=== PATIENT | female | born 1940 | race Caucasian/White ===

== ENCOUNTER 2019-05-12 21:43 | Inpatient (IN) ==
[2019-05-12] MEDS ORDERED: MORPHINE IV ONE (22:27)
--- NOTE | 2019-05-13 00:10 | PROVIDER DOCUMENTATION ---
This chart was entered by Alma Raymundo Scribe, acting as scribe for Teo Braxton MD. HPI-Musculoskeletal Pain/Inj - GENERAL Chief Complaint: Hip Injury Stated Complaint: fall Time Seen by Provider: 05/12/19 22:00 Source: patient - HX OF PRESENT ILLNESS-MUSKULOSKELTAL Nature of Presenting Problem: PT IS A 78 YR OLD FEMALE PRESENTING VIA EMS WITH COMPLAINT OF LEFT HIP PAIN POST FALL, PT REPORTS SHE WAS WORKING ON HER BEDROOM CURTAINS WHEN SHE LOST HER BALANCE AND FELL BACKWARDS ONTO HER BUTTOCKS, PT REPORTS LEFT HIP PAIN WITH WEIGHT BEARING/AMBULATION, NO OTHER COMPLAINTS. Quality of Pain: reports: aching Severity in ED: moderate Onset/Duration: this evening Timing: still present Modifying Factors: improves with: movement (WORSENS PAIN), other (WEIGHT BEARING WORSENS PAIN) Any recent injury?: Yes Locality of Occurance: Home Similar Symptoms Previously?: No Recently seen or treated by another doctor?: No - HIP/PELVIS PAIN/INJURY Hip Pain Location: reports: hip (L) Pain Radiation: reports: no radiation Context / Method of Injury: reports: fall Associated Symptoms: denies: loss of bladder control, loss of bowel control, lower back pain, numbness in legs/feet, tingling in legs/feet, weakness in legs/feet - LOWER EXTREMITY PAIN/INJURY Lower Extremities Pain: hip: left Associated Symptoms: reports: denies symptoms Review of Systems - Adult - REVIEW OF SYSTEMS - ADULT Constitutional: reports: no symptoms reported Eyes: reports: no symptoms reported Ears, Nose, Mouth & Throat: reports: no symptoms reported Cardiovascular: denies: chest pain, palpitations, syncope Respiratory: denies: pleurisy, shortness of breath Gastrointestinal: denies: abdominal pain, nausea, vomiting Genitourinary: reports: no symptoms reported Musculoskeletal: reports: joint pain (LEFT HIP). denies: back pain Integumentary: reports: no symptoms reported Neurological: denies: dizziness/vertigo, headache/migraines, syncope Psychiatric: reports: no symptoms reported Endocrine: reports: no symptoms reported Hematologic/Lymphatic: reports: no symptoms reported Allergic/Immunologic: reports: no symptoms reported All Other Systems: Reviewed and Negative Past History - Adult - PAST MEDICAL HISTORY-ADULT Review of Records: reports: Old Records Reviewed, Nursing Assessment Review, Medications Reviewed, Social history reviewed & non-contributory. Major Childhood Illnesses: reports: denies history Cardiovascular: reports: HTN Respiratory: reports: denies history Gastrointestinal: reports: denies history Obstetrical/Gynecological: reports: denies history Genitourinary: reports: denies history Musculoskeletal: reports: denies history Neurological: reports: dementia Psychiatric: reports: denies history Endocrine/Immune: reports: denies history Other Conditions: reports: denies history - PRIOR SURGERIES/PROCEDURES Surgical/Procedure History: reports: reviewed, not pertinent - IMMUNIZATION STATUS Childhood Immunizations: See Nurse Assessment Flu Vaccine: See Nurse Assessment - FAMILY HISTORY Family History: reviewed, not pertinent - SOCIAL HISTORY Smoking: quit greater than 1 year Provider spent 3-5 mins advising pt. on dangers of tobacco.: Discussed manners to quit use, and f/u contacts for add'l counseling. Living Situation: family Physical Exam-Injury Related - Physical Exam-Injury Related Initial Vital Signs Reviewed: Yes General Appearance: appears well, alert, no apparent distress Immobilization?: negative: backboard, C-collar Eyes: PERRL/EOMI Head, Ears, Nose, Mouth & Throat: normocephalic/atraumatic, moist mucous membranes, normal ENT inspection Neck: non-tender, full range of motion, supple, normal inspection Respiratory: chest non-tender, lungs clear, normal breath sounds Cardiovascular: normal peripheral pulses, regular rate, rhythm, no edema Chest/Breast: deferred Abdominal Exam: normal bowel sounds, non tender, soft Lymphatic: no adenopathy Back Exam: normal inspection, no CVA tenderness, no vertebral tenderness Extremity: tenderness (LEFT HIP), other (SHORTENING OF LEFT LEG). negative: deformity Integumentary: normal color, warm/dry Neurologic: grossly normal Psych/Mental Status: normal mood/affect - Glascow Coma Score Best Eye Response (Ridge): (4) open spontaneously Best Verbal Response (Sandwich): (5) oriented Best Motor Response (Sandwich): (6) obeys commands Ridge Total: 15 Progress - PLAN OF CARE/RESULTS Progress/Plan/Lab Results: Vital Signs - 8 hr 05/12/19 21:58 Pulse Rate 97 H Respiratory Rate 20 Blood Pressure 182/70 O2 Sat by Pulse Oximetry 88 L Orders Category Date Time Status CHEST-1 VIEW [RAD] Stat Exams 05/12/19 22:56 Taken XRAY PELVIS W/HIP 2-3VW LT [RAD] Stat Exams 05/12/19 22:27 Taken Morphine Med 05/12/19 22:27 Discontinued 4 mg IV NOW ONE Departure - Departure Date of Disposition Decision: 05/13/19 Time of Disposition Decision: 00:09 DIAGNOSIS: Closed left hip fracture Qualifiers: Encounter type: initial encounter Qualified Code(s): S72.002A - Fracture of unspecified part of neck of left femur, initial encounter for closed fracture Disposition: ADMITTED INPATIENT Certified Medical Emergency: Emergent Condition: Stable - Critical Care Note This patient required my direct & personal management of CC.: No Attestation - Physician/ CRISTO Attestation Patient care was provided by Advanced Practice Provider:: No The physician spent face to face time with patient:: Yes Advanced Practice Provider documentation review:: Supervising physician onsite and consulted in the evaluation and care of this patient. The physician did have a face to face encounter with the patient. This chart was documented by the indicated scribe, (Alma Raymundo, Oscar) and accurately reflects the services I performed and decisions made by me, Teo Braxton MD, as attested by the provider's signature.
[2019-05-13] MEDS ORDERED: MORPHINE IV PRN ×2 (00:54→15:16)
[2019-05-13] MEDS ORDERED: D5 1/2 NS 1,000 ML IV ONE (00:55)
[2019-05-13] MEDS ORDERED: SINEQUAN PO PRN (00:56)
[2019-05-13] MEDS ORDERED: TYLENOL PO PRN (01:00)
[2019-05-13] MEDS ORDERED: ATIVAN IV ONE (01:02)
[2019-05-13 01:33] LABS: BASO# 0.02 X1000 (0.0-0.2); BASO% 0.2 % (0.0-0.8); EOS# 0.06 X1000 (0.0-0.7); EOS% 0.6 % (0.0-10.0); HEMATOCRIT 35.9 % (37.0-47.0); HEMOGLOBIN 11.6 g/dL (12.0-16.0); LYMPH# 1.26 X1000 (1.2-3.4); LYMPH% 12.5 % (20.5-51.1); MCH 30.4 PG (27-31); MCHC 32.3 g/dL (33-37); MONO# 0.91 X1000 (0.11-0.59); MPV 9.3 FL (7.4-10.4); NEUT# 7.81 X1000 (1.4-6.5); NEUT% 77.7 % (42.2-75.2); PLT 209 X1000 (130-400); RBC 3.82 XMIL (4.2-5.4); WBC 10.06 X1000 (4.8-10.8)
[2019-05-13 01:36] LABS: INR 1.08; PROTIME 14.1 Seconds (11.0-16.0)
[2019-05-13 01:37] LABS: PTT 31.5 Seconds (22.3-41.8)
[2019-05-13] MEDS ORDERED: ROBAXIN PO PRN (01:43)
[2019-05-13 01:52] LABS: CALCIUM 8.8 mg/dL (8.8-10.2); CREATININE 0.9 mg/dL (0.5-0.9); POTASSIUM 4.3 mmol/L (3.5-5.1)
[2019-05-13 04:23] LABS: URINE SOURCE CATH
[2019-05-13 04:27] LABS: BILIRUBIN URINE NEGATIVE (NEGATIVE); BLOOD URINE MODERATE (NEGATIVE); COLOR YELLOW; GLUCOSE URINE NEGATIVE (NEGATIVE); KETONE URINE NEGATIVE (NEGATIVE); LEUKOCYTES URINE NEGATIVE (NEGATIVE); NITRITE URINE NEGATIVE (NEGATIVE); PH URINE 5.5; PROTEIN URINE 30 mg/dL (NEGATIVE); SP GRAVITY URINE 1.021; TURBIDITY URINE CLEAR (CLEAR); UR EPITHELIAL CELLS <10 /HPF (<10); URINE BACTERIA NEGATIVE /HPF; URINE RBC TNTC /HPF (<10); URINE WBC <10 /HPF (<10); UROBILINOGEN URINE NORMAL (NORMAL)
[2019-05-13 06:23] LABS: BASO# 0.04 X1000 (0.0-0.2); BASO% 0.5 % (0.0-0.8); EOS# 0.16 X1000 (0.0-0.7); EOS% 1.9 % (0.0-10.0); HEMATOCRIT 35.8 % (37.0-47.0); HEMOGLOBIN 11.4 g/dL (12.0-16.0); LYMPH% 9.6 % (20.5-51.1); MCH 30.5 PG (27-31); MCHC 31.8 g/dL (33-37); MCV 95.7 FL (81-99); MONO# 0.77 X1000 (0.11-0.59); MONO% 9.2 % (1.7-9.3); MPV 9.3 FL (7.4-10.4); NEUT% 78.8 % (42.2-75.2); PLT 205 X1000 (130-400); RBC 3.74 XMIL (4.2-5.4); RDW 14.1 % (11.5-14.5); WBC 8.37 X1000 (4.8-10.8)
[2019-05-13 06:44] LABS: CALCIUM 8.4 mg/dL (8.8-10.2); CREATININE 0.9 mg/dL (0.5-0.9); POTASSIUM 4.4 mmol/L (3.5-5.1)
--- NOTE | 2019-05-13 07:16 | HISTORY AND PHYSICAL ---
CHIEF COMPLAINT: Left hip pain. HISTORY OF PRESENT ILLNESS: This is a 78-year-old female with a past medical history of anxiety, depression, insomnia and possible dementia who presented to the emergency department with a chief complaint of left hip pain, as per the patient she was working on her bedroom and she lost her balance, she fell backward and hit her buttocks, after that she started having left hip pain, but she was able to ambulate, she did not hit her head or neck, she did not lose consciousness, no dizziness, no chest pain, no palpitations, no nausea, no vomiting, no diarrhea, no constipation, no urinary symptoms, no cough. At the emergency department, she was found to have a left hip fracture. They contacted Orthopedic Surgery, Dr. Guzman, she will be admitted, she will be placed NPO. Probably she will go for surgery tomorrow or the day after tomorrow, I had a large conversation with the daughter, which is the power of [place] attorney, and she stated that also the patient has been drinking every day, apparently she drinks Lambrusco, she believes 2 to 3 coffee cups of this drink, I will put her on banana bag, I will put her on Ativan as needed if she has some withdrawal symptoms, and I will continue with her home medications as well. She will be admitted to the medical/surgical floor and hopefully she will be getting surgery in the near future. REVIEW OF SYSTEMS: All the 14 points of review of systems were reviewed. All of them negative, except as per HPI. PAST MEDICAL HISTORY: Anxiety, depression, insomnia, and possible dementia. She has a medical history of deep venous thrombosis at the level of the lower extremity, she took Xarelto for a few months and has been already stopped by her primary care doctor. 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 FAMILY HISTORY: Noncontributory. SOCIAL HISTORY: Apparently she drinks every day, apparently for the past 2 years, she drinks Lambrusco and the daughter believes that she drinks at least 2 to 3 coffee cups of Lambrusco on a daily basis. Smoking history, he used to smoke 1 pack a day for 40 years, she stopped smoking 15 years ago, no drugs. HOME MEDICATIONS: Doxepin 10 mg p.o. as needed to sleep. Citalopram 20 mg p.o. daily. Buspirone 10 mg p.o. t.i.d. Methocarbamol/Robaxin 1 tablet p.o. t.i.d. as needed. PHYSICAL EXAMINATION: VITAL SIGNS: Pulse 97, respiratory rate 20, blood pressure 182/70, oxygen saturation on the monitor 93 on room air. HEENT: Head normocephalic. No trauma. PERRLA. NECK: Supple no JVD. No masses. Central trachea. CHEST: Clear to auscultation. No wheezing. No rales. ABDOMEN: Soft, nontender, nondistended. No hepatosplenomegaly. EXTREMITIES: Left hip pain, her left lower extremity is shorter compared with the right lower extremity. It is a slightly rotated externally, pain to palpation and mobilization at the level of the hip. NEUROLOGICAL EXAMINATION: The patient is alert. She is oriented x3. She is following commands, but she seems to be a little bit confused on and off. LABORATORY: Pending lab work at this moment. ASSESSMENT AND PLAN: 1. Left hip fracture, this patient will be admitted to the medical floor. Orthopedic Surgery has been already consulted and already notified by the ER doctor, she will be placed n.p.o. We will monitor this patient closely. We will continue with pain medication. 2. Anxiety. Continue home medications. 3. Deep vein thrombosis prophylaxis with sequential compression devices for possible surgical intervention in the near future. 4. Depression. Continue with the same management. 5. Possible dementia. Aware. 6. History of deep venous thrombosis, she already completed treatment with Xarelto, which has been stopped already by her primary care doctor. 7. Insomnia. Continue with p.r.n. medication. 8. Likely alcohol abuse. I will put this patient on a banana bag and also p.r.n. medications, Ativan, for withdrawal symptoms or agitation. 9. History of tobacco abuse, she already stopped smoking 15 years ago. 10. I had a conversation at the bedside with her daughter, which is the power of united states attorney, we discussed about her resuscitation status and this patient is full code. 11. Further recommendations pending hospital course. cc: MD JORDEN Sewell
--- NOTE | 2019-05-13 07:18 | Diag Imaging Result Doc PS360 ---
EXAM: XRAY PELVIS W/HIP 2-3VW LT INDICATION: fall, injury TECHNIQUE: 3 views COMPARISON: None. FINDINGS: There is an intratrochanteric fracture of the left hip with very little displacement. No other discrete fracture or dislocation is identified. Surrounding soft tissues are unremarkable. IMPRESSION: Intertrochanteric left hip fracture. Electronically signed by Vasile Sellers 05/13/2019 7:16 AM
--- NOTE | 2019-05-13 07:32 | Diag Imaging Result Doc PS360 ---
EXAM: CHEST-1 VIEW 05/12/2019 HISTORY: fall TECHNIQUE: PA chest COMMENT: There is apparent pleural and parenchymal fibrosis in both apices. There has been kyphoplasty at T12 and L2. The vertebral bodies of T8 and T9 appear to be partially compressed. This was also apparently present at the time of the MRI of the thoracic spine dated 02/21/2019. The heart size and primary vascularity are within normal limits. There are granulomatous calcifications in the left hilum. No previous studies are available for comparison. IMPRESSION: Osteoporosis. Multiple old vertebral compression fractures. Granulomatous changes. No definite evidence of acute pulmonary disease. Electronically signed by Isaiah Maddox 05/13/2019 7:29 AM
[2019-05-13] MEDS ORDERED: M.V.I.-12 10 ML, FOLIC ACID 1 MG, MAGNESIUM SULFATE 1 GM, THIAMINE 100 MG in NS 1,000 ML IV SCH (09:00)
[2019-05-13] MEDS ORDERED: DIPRIVAN 1% ONE (11:15)
[2019-05-13] MEDS ORDERED: XYLOCAINE-MPF 2% ONE (11:15)
[2019-05-13] MEDS ORDERED: ROBINUL ONE (11:15)
--- NOTE | 2019-05-13 11:51 | ORTHOPAEDICS CONSULTATION ---
DATE: 05/13/2019 CHIEF COMPLAINT: Left hip pain. HISTORY OF PRESENT ILLNESS: This is a 78-year-old female with a past medical history of depression and possible dementia with insomnia, who came to the emergency department for a recent fall. She reports that she could not ambulate, and she had some severe left hip pain at that time. She denies LOC. Orthopedics was consulted to come see the patient. An x-ray was performed in the emergency department and showed left intertrochanteric hip fracture. REVIEW OF SYSTEMS: A 12-point review of systems was performed. Pertinent positives listed in the HPI. PAST MEDICAL HISTORY: Includes depression, insomnia, and possible dementia. PAST SURGICAL HISTORY: Includes kyphoplasty in 03/2019, and inner ear surgery. FAMILY HISTORY: Noncontributory. SOCIAL HISTORY: The patient reports that she used to smoke daily, but has not smoked in over 15 years. She denies drug or alcohol use. HOME MEDICATIONS: Doxepin 10 mg p.o. at bedtime, citalopram 20 mg daily, and buspirone 10 mg t.i.d. PHYSICAL EXAMINATION: Vital Signs: Temperature 98.5 degrees, pulse rate 95, respiratory rate 20, blood pressure 164/65, oxygen saturation 98% on room air. HEENT: Head is atraumatic, normocephalic. Neck: Supple. Chest: There is equal chest expansion, rise and fall. Abdomen: Soft, nontender. Extremities: The left lower extremity is shortened and externally rotated. There is tenderness along the lateral left hip. There is good sensation. There are good pedal pulses. LABORATORY DATA: White blood cells 8.37, hemoglobin 11.4, hematocrit 35.8, platelets 205,000. INR 1.08. Sodium 137, potassium 4.4, chloride 104, BUN 16, creatinine 0.9, glucose 113. Urine shows moderate blood. ASSESSMENT: Left intertrochanteric hip fracture. PLAN: Will plan to place a trochanteric fixation nail today in the operating room with Dr. Parker. The patient has been n.p.o., and she agrees to this plan. All the risks of surgery were went over with the patient and family at bedside. They agree to these risks, including . Will see her in the operating room today. Dictated by BRUNO Pena for Pola Guzman MD cc: BRUNO Pena MD
[2019-05-13] MEDS ORDERED: KEFZOL 1 GM/D5W 1 GM/50 ML IVPB ONE (12:54)
[2019-05-13] MEDS ORDERED: VERSED ONE (12:57)
[2019-05-13] MEDS ORDERED: TORADOL ONE (13:38)
[2019-05-13] MEDS ORDERED: DECADRON ONE (13:38)
[2019-05-13] MEDS ORDERED: OFIRMEV 1000 MG/ISOTONIC SOLN 1,000 MG/100 ML BOTTLE ONE (13:38)
--- NOTE | 2019-05-13 14:02 | ORTHOPAEDICS CONSULTATION ---
DATE: 05/13/2019 REASON FOR CONSULTATION: Left hip pain after a fall. FAMILY PHYSICIAN: Guru Evans MD. HISTORY OF PRESENT ILLNESS: Ms. Moore is a 78-year-old female with a past medical history of anxiety, depression, insomnia, possible dementia, who presented to the [facility] Emergency Department after a fall. She states she is really unsure what happened. She does recall a fall yesterday. After that, she was unable to ambulate. She denies loss of consciousness or hitting the head or any other extremity. Once in the emergency department, x- rays showed a left hip fracture. Dr. Guzman was consulted for management of the left hip. Apparently the daughter was in the ER with the patient. The daughter does believe that she drinks Lambrusco daily. There are some concerns for withdrawal as we are not sure how much she drinks daily. She does live at home alone. The Hospitalist is following that. REVIEW OF SYSTEMS: A 10-point review of systems was completed and negative except what was mentioned above in the HPI. ALLERGIES: No known drug allergies. PAST MEDICAL HISTORY: 1. Anxiety. 2. Depression. She recently lost her . 3. Insomnia. 4. Possible dementia. 5. DVT left lower extremity. PAST SURGICAL HISTORY: Kyphoplasty. FAMILY HISTORY: Noncontributory. SOCIAL HISTORY: She does live at home alone. She is still very independent. She still drives. She has a son and a daughter that live close by. She did recently lose her . Apparently, she does drink daily and this has been going on for about 2 years. She denies tobacco or illicit drug use. HOME MEDICATIONS: 1. Doxepin 10 mg p.o. as needed sleep. 2. Wellbutrin 10 mg p.o. t.i.d. 3. Robaxin 1 p.o. t.i.d. as needed. PHYSICAL EXAMINATION: Vital signs: Temperature is 98.5, pulse 95, respirations 20, blood pressure 164/65. She is 98% on 2 L nasal cannula. General: This is a 78-year-old female in no acute distress. Neurological: She is alert and oriented but does have some trouble answering questions. HEENT: Head is atraumatic, normocephalic. Pupils are equal, round, and reactive to light. CV: Regular rate and rhythm. Pulmonary: Breathing is even and unlabored. Abdomen: Nondistended. Extremities: She does have the left foot kind of tucked under her. She is tender to palpation. She does complain of some left groin pain. She is able to dorsi flex and plantar flex the foot. There are no skin ulcerations or abrasions. She has good sensation to the lower extremity. IMAGING: A hip film showed a left intertrochanteric hip fracture. ASSESSMENT: Left intertrochanteric hip fracture. PLAN: Dr. Guzman has already been in to see the patient and has discussed the risks and benefits of nonoperative versus operative intervention. With operative treatment, we will get her back up much quicker and she will be full weightbearing. We will plan for a left trochanteric femoral nailing on Sunday or Sunday. This will likely be Sunday. It looks like she is medically cleared. Risks of the procedure were discussed. Risks include but are not limited to damage to nerves, arteries, and veins, malunion, nonunion, hardware-related issues, DVT, infection, and risk of general anesthesia. The patient understands and wishes to proceed. Again, it looks like we will probably set this up for Sunday. She will need to stay in a rehab. We will go ahead and plan on contacting [employer] to go ahead and get that setup. Dictated by BRUNO Jha for Pola Guzman MD cc: BRUNO Jha MD
[2019-05-13] MEDS ORDERED: OXY IR PO PRN (15:16)
[2019-05-13] MEDS ORDERED: ZOFRAN IV PRN (15:16)
--- NOTE | 2019-05-13 17:42 | OPERATIVE NOTE ---
PROCEDURE DATE : 05/13/2019 PREOPERATIVE DIAGNOSIS: Left intertrochanteric femur fracture. POSTOPERATIVE DIAGNOSIS: Left intertrochanteric femur fracture. PROCEDURE: Closed reduction and intramedullary nailing of left intertrochanteric femur fracture. SURGEON: Jacques Parker MD. CARPENTER ROUGH: BRUNO Pena, who was necessary to help with retraction as well as holding fracture reduction while implants were placed. ANESTHESIA: Spinal. COMPLICATIONS: None. SPECIMENS: None. BLOOD LOSS: 100 mL. IMPLANTS: Synthes TFN-A hip nail, size 11 mm x 380 mm, left, with a 95 mm helical blade and one distal interlocking screw. INDICATIONS FOR PROCEDURE: Ms. Moore is a 78-year-old lady who presented to [facility] after sustaining a same-level fall. The x-rays demonstrated an intertrochanteric femur fracture. Given her fracture pattern, she would benefit from closed reduction and intramedullary nailing. The risks and benefits of alternative therapies were discussed with the patient and her family, as well as regarding surgery. The risks of surgery include but are not limited to risks of bleeding, infection, damage to nerves and vessels around the area, continued pain following surgery, nonunion, malunion, and need for revision surgery. Also discussed the risks of anesthesia, including blood clot, stroke, or even . The patient understands these risks. All questions were answered, and informed consent was obtained. PROCEDURE IN DETAIL: Ms. Moore was identified by wrist band and greeted in the preoperative holding area on 05/13/2019. Her left lower extremity, which was the operative side, was then marked with indelible ink per the [facility] [id number] protocol. Following this, the patient was transferred back to the operating room for surgery. Spinal anesthetic was placed. She was then transferred in the supine position onto a Pearson table. All bony prominences were well padded. The legs were placed into the boot holders and placed in a scissored position. At this time, fluoroscopy was brought in, and a reduction maneuver was performed using traction on the bed. When we were satisfied with the reduction in both AP and lateral planes, the left lower extremity was then prepped and draped in routine sterile fashion. A formal time-out was performed, confirming correct patient, procedure, operative site, operative side, and administration foot preoperative antibiotics. Everyone in the room was in agreement. The patient received 2 grams of Ancef prior to incision. A 3 cm longitudinal incision was made just proximal to the tip of the greater trochanter using a 10 blade knife through the skin and subcutaneous tissue. At this time the guide pin for the nail was then placed on the tip of the greater trochanter. When we were satisfied with position in both AP and lateral planes, the guidewire was taken down to the level of the lesser trochanter. The flexible canal entry reamer was then used to enter the canal down to the level of the lesser trochanter. At this time a ball-tipped guidewire was then placed down distal to the knee. A measuring device was then used to measure the length of the nail, which was found to be 38 cm. We then began with sequential reaming, starting with a 10 m incutting reamer, followed by 11.5 mm and then 12.5 mm. At this time, an 11 mm x 380 mm left TFN-A nail was opened and assembled on the back table. The nail was then mounted into position in routine fashion. Reduction was maintained during this process. We then made a second more distal longitudinal incision for placement of our helical blade. The knife was used to dissect through skin and subcutaneous tissue and to slit the IT band. The guide was then placed on the lateral cortex. At this time the guide pin was driven up into the femoral head. Again, when we were satisfied with our rotation in both AP and lateral planes, we took the guide pin up to just shy of the subchondral bone on the femoral head. We then measured this, and it was found to be a 95 mm helical blade. Next, the lateral cortex was broached using a reamer, and then a big reamer was used to drill 85 mm into the femoral head. At this time, our helical blade was then packed into placed in routine fashion. We then locked the blade in place and loosened it a half a turn to allow for dynamization and compression. Once this was done, the nail insertion jig was removed, and final AP and lateral of the hip were taken. We then turned our attention to placing the distal interlock screw using perfect- karluk technique. A perfect lateral of the distal end of the nail was obtained, and the knife was used to make a poke- hole incision over the most distal hole. A drill was then taken across the femur through the nail, and a 56 mm interlock screw was then placed in routine fashion. Final x- rays were then taken of the fracture site, as well as distally at the knee. At this time, all wounds were copiously irrigated with normal saline. #1 Vicryl suture was used for closure of the IT band and the proximal 2 hole incisions. 2-0 Vicryl suture was then used for subcutaneous tissue closure, followed by cam for skin closure. The wound was then dressed with Xeroform, 4 x 4s, Telfa and a Tegaderm dressing. At this time the patient was then woken up, transferred over to her hospital bed and taken to the recovery room in stable conditions. There were no acute complications during the procedure. All sponge, needle and sharp counts were correct at completion of the procedure [facility]
--- NOTE | 2019-05-13 18:01 | PROGRESS NOTE ---
DATE: 05/13/2019 SUBJECTIVE: Today Ms. Moore referred to be doing well. She just had come from surgery, and she refers that her pain is remarkably now better. Her daughter and her son were both at the bedside at the time of the encounter. OBJECTIVE: Vital Signs: Blood pressure is 110/67, pulse of 95, respirations 20, temperature 97.6 degrees. General: Ms. Moore is a 78-year-old elderly female. She is in bed, in no distress. HEENT: Mucosa is pink and moist. Anicteric. Acyanotic. Neck: Supple. Chest: Clear to auscultation. Cardiovascular: Regular rate and rhythm. No murmurs, no rubs, no gallops. Abdomen: Soft. Extremities: No pedal edema. Left lower extremity the hip has some sterile dressing over the recent orthopedic surgery site. The lower extremities are both neurovascularly intact. LABORATORY DATA: CBC shows a normocytic anemia. Chemistry is within normal range. CURRENT MEDICATIONS: I have reviewed her current medications and no changes. ASSESSMENT: Status post mechanical fall resulting into a left hip fracture. The patient is status post open reduction and internal fixation. She is immediate postoperative. 1. History of deep vein thrombosis, treated with Xarelto. 2. History of alcohol use and possible abuse. 3. Dementia. 4. Situational depression with possible adjustment disorder associated with a recent of her partner. DISCUSSION: So in general, Ms. Moore is doing fairly okay. She is just immediate orthopedic intervention of the left hip. We will re-evaluate her in the morning and follow up with further recommendations from Orthopedics. I think her timeline will be to get PT to evaluate her tomorrow and possibly get her to a rehab in about a day or 2. Social Work has also been consulted. cc: Michele Bustos MD
[2019-05-13] MEDS: LEXAPRO PO SCH (18:40)
[2019-05-13] MEDS: BUSPAR PO SCH ×2 (18:40→20:43)
[2019-05-13] MEDS: COLACE PO SCH (20:43)
[2019-05-13] MEDS: KEFZOL 1 GM/D5W 1 GM/50 ML IVPB IV SCH (20:43)
[2019-05-13] MEDS: TYLENOL PO SCH (20:43)
[2019-05-13] MEDS ORDERED: CALMOSEPTINE OINTMENT TOP PRN (21:26)
[2019-05-13] MEDS: ATIVAN IV PRN (21:43)
--- NOTE | 2019-05-13 22:27 | ORTHOPAEDICS PROGRESS NOTE ---
DATE: 05/13/2019 SUBJECTIVE: The patient is seen in the PACU and was awake; however, still drowsy. She denies any pain. No other complaints. OBJECTIVE: Vital Signs: Afebrile. Vital signs stable. Extremities: Left lower extremity, examination of the left thigh revealed dressing intact with no signs of bleeding. Thigh is soft and compressible. Dorsalis pedis pulse is palpable. Decreased motor and sensation function in the left lower extremity secondary to a spinal anesthetic. PLAN: 1. Status post left closed reduction intramedullary nailing of an intertrochanteric femur fracture. 2. The patient to be weightbearing as tolerated left lower extremity. We will have Physical Therapy work with her on immobilization starting tomorrow. 3. Okay to resume Lovenox 40 mg daily for DVT prophylaxis. 4. Ice as needed to the left lower extremity. 5. Case Management consult for placement in longterm facility upon discharge. 6. [facility] x24 hours.
[2019-05-14] MEDS: TYLENOL PO SCH ×3 (05:47→20:57)
[2019-05-14] MEDS: KEFZOL 1 GM/D5W 1 GM/50 ML IVPB IV SCH ×2 (05:48→13:39)
[2019-05-14] MEDS: LOVENOX SUBQ SCH (05:48)
--- NOTE | 2019-05-14 06:24 | ORTHOPAEDICS PROGRESS NOTE ---
DATE: 05/13/2019 The patient is seen up in her room preoperatively earlier this morning. Given her fracture pattern, she will benefit from closed reduction, intramedullary nailing of her femur fracture. Risks, benefits, and alternative therapies were discussed with the patient and her family regarding surgery. The risks for surgery include but are not limited to risks of bleeding, infection, damage to nerves or vessels around the area, malunion, nonunion, continued pain following surgery, and need for revision surgery. Also, the risks of anesthesia including blood clots, stroke, heart attack, and even . The patient and family understand these risks. We will plan on doing this operation later on this afternoon. She will likely be weightbearing as tolerated postoperatively. We will talk with case management about getting a [facility] facility set up upon discharge.
[2019-05-14 06:55] LABS: CALCIUM 7.6 mg/dL (8.8-10.2); CREATININE 0.9 mg/dL (0.5-0.9); POTASSIUM 4.8 mmol/L (3.5-5.1)
[2019-05-14 07:17] LABS: HEMATOCRIT 29.9 % (37.0-47.0); HEMOGLOBIN 9.4 g/dL (12.0-16.0)
[2019-05-14] MEDS: BUSPAR PO SCH ×4 (07:41→17:31)
[2019-05-14] MEDS: LEXAPRO PO SCH ×2 (07:41→09:46)
[2019-05-14] MEDS: FERROUS SULFATE PO SCH (07:42)
[2019-05-14] MEDS: PERIDEX MT SCH ×3 (07:42→20:57)
--- NOTE | 2019-05-14 13:07 | PROGRESS NOTE ---
DATE: 05/14/2019 SUBJECTIVE: This morning, Ms. Moore refers to be doing fairly okay, was more delightful this morning than yesterday. The daughter was at the bedside at the time of the encounter. OBJECTIVE: Vital Signs: Blood pressure is 163/58, pulse of 99, respirations 20, temperature is 98.1 degrees. General: Ms. Moore is a 78-year-old female. She was in bed. No distress. HEENT: Mucosa is pink and moist. Anicteric. Acyanotic. Neck: Supple. Chest: Clear to auscultation. No crepitations. No rhonchi. Cardiovascular: Regular rate and rhythm. GI: Abdomen was soft, nontender. Bowel sounds present. Extremities: No pedal edema. Left lower extremity has dressing over the orthopedic surgery site, but the extremity was neurovascularly intact. SECURITIES ADVISER: The patient was awake, alert, and oriented. LABORATORY DATA: Hemoglobin is 9.4. Chemistry is also reviewed. Sodium is 128. IMAGING STUDIES: None today. ASSESSMENT: 1. Status post mechanical fall, resulting into a left hip fracture. The patient is status post open reduction and internal fixation. Today is day 1 postoperative. This was done by Dr. Parker. The patient has been evaluated today by Physical Therapy. She has done 60 feet with minimum assist. 2. History of deep venous thrombosis, on Xarelto. 3. History of alcohol use and possible abuse. Will continue monitoring for withdrawal. 4. Situational depression with some adjustment disorder associated with the recent of . The patient has been started on antidepressive medicine. 5. Dementia, stable. 6. Disposition. We are pending rehab placement. The patient has made preference to go to [facility]. cc: Michele Bustos MD
--- NOTE | 2019-05-14 14:29 | ORTHOPAEDICS PROGRESS NOTE ---
DATE: 05/14/2019 SUBJECTIVE: No acute events overnight. The patient is doing well. She looks really good this morning. She got up with physical therapy and ambulated down the hallway to the nurse's station and back bearing weight on her operative leg. Her daughter reports some dementia overnight and that the patient was trying to get out of bed on her own. She is tolerating a diet. No nausea or vomiting. OBJECTIVE: Vital signs: Afebrile. Vital signs stable. Hematocrit is 29. Extremities: Examination of her left lower extremity reveals incisions to be clean, dry, and intact. Cam are in place. Thigh is soft and compressible. Motor is intact, EHL tibialis anterior gastrocsoleus complex. Sensation intact to light touch L3 to S1. Dorsalis pedis pulses palpable and equal bilaterally. Calf is soft and compressible. ASSESSMENT AND PLAN: A 78-year-old female status post closed reduction and intramedullary nailing of left intertrochanteric femur fracture. Postoperative day 1. The patient should be weightbearing as tolerated to left lower extremity. Physical Therapy to mobilize the patient with assisted device if needed. Lovenox, DVT prophylaxis. Appreciate Hospitalist recommendations. 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 She will benefit from going to a [facility] facility versus inpatient rehab after this. I will see her in clinic in 10-14 days to remove cam and get further x-rays.
[2019-05-14] MEDS: ATIVAN IV PRN (20:56)
[2019-05-14] MEDS: COLACE PO SCH (20:57)
[2019-05-15] MEDS: ATIVAN IV PRN ×2 (05:39→20:03)
[2019-05-15] MEDS: TYLENOL PO SCH ×4 (05:39→20:05)
[2019-05-15] MEDS: LOVENOX SUBQ SCH (05:40)
[2019-05-15 07:10] LABS: HEMOGLOBIN 9.2 g/dL (12.0-16.0); MCHC 30.7 g/dL (33-37); MPV 9.7 FL (7.4-10.4); RBC 2.97 XMIL (4.2-5.4); WBC 7.12 X1000 (4.8-10.8)
[2019-05-15 07:18] LABS: ALBUMIN 3.3 g/dL (3.5-5.0); CALCIUM 8.3 mg/dL (8.8-10.2); PHOSPHORUS 2.3 mg/dL (2.7-4.5); POTASSIUM 4.4 mmol/L (3.5-5.1)
[2019-05-15] MEDS: THERA M PLUS PO SCH (12:05)
[2019-05-15] MEDS: FERROUS SULFATE PO SCH (12:05)
[2019-05-15] MEDS: LEXAPRO PO SCH (12:06)
[2019-05-15] MEDS: BUSPAR PO SCH ×3 (12:06→17:46)
[2019-05-15] MEDS: PERIDEX MT SCH ×2 (12:06→20:05)
--- NOTE | 2019-05-15 19:38 | PROGRESS NOTE ---
DATE: 05/15/2019 SUBJECTIVE: This patient seems to be doing better. Family members are at the bedside, her son and [id number]. She is awake. She is oriented to person. She is able to recognize family members at the bedside. She knows who is the President of [employer]. She is not oriented to place or time. PHYSICAL EXAMINATION: Vital Signs: Temperature 99, pulse 98, respiratory rate 20, blood pressure 138/52, oxygen saturation 100% on 2 L of nasal cannula. HEENT: Head normocephalic, no trauma. PERRLA. Neck: Supple. No JVD. No masses. Central trachea. Chest: Clear to auscultation. No wheezing. No rales. Abdomen: Soft, nontender, nondistended. No hepatosplenomegaly. Extremities: No edema, no clubbing, no cyanosis. The left lower extremity has a dressing over the wound on the left hip. The extremity is not having any kind of neurovascular issues, Neurologic: The patient is awake, alert. She is oriented to person. She is not oriented to place or time. She is able to recognize family members at the bedside and follow commands. LABORATORY: WBC 7.1, hemoglobin 9.2, hematocrit 30, platelet count 175. Sodium 133, potassium 4.4, chloride 101, bicarbonate 25, BUN 16, creatinine 1, glucose 91, calcium 8.3, albumin 3.3. ASSESSMENT AND PLAN: Left hip fracture status post open reduction and internal fixation with intramedullary nailing of left intertrochanteric femur fracture, postoperative day number 2. The patient seems to be doing okay. Physical therapy on board. She should go to a rehab center once we have availability. We will continue with the same management for now. cc: Pavel Tucker MD
[2019-05-15] MEDS: COLACE PO SCH (20:05)
--- NOTE | 2019-05-15 22:24 | ORTHOPAEDICS PROGRESS NOTE ---
DATE: 05/15/2019 SUBJECTIVE: No acute events overnight. The patient has had some increased confusion and dementia. She did not ambulate in the hallway with physical therapy today secondary to confusion. She has had decreased appetite today. She is urinating. OBJECTIVE: Examination of left lower extremity reveals incisions to be clean, dry, and intact. Thigh is soft, depressible. No fluctuance. No pain with log roll of the hip. Toes are up and downgoing. Sensation grossly intact to light touch L3 to S1. Dorsalis pedis pulse is palpable. Calf soft. IMPRESSION: Postoperative day 2 status post closed reduction intramedullary nailing of left intertrochanteric femur fracture. PLAN: 1. The patient can be weightbearing as tolerated left lower extremity. 2. PT to mobilize with assistive device. 3. Encouraged family to work on patient's sundowning and confusion by keeping blinds open during the day and then turning the lights off at night. 4. Lovenox for DVT prophylaxis. 5. Disposition per primary team. [facility]. I will see her in the clinic in 10 to 14 days after discharge. [facility]
[2019-05-16] MEDS: ATIVAN IV PRN (05:51)
[2019-05-16] MEDS: LOVENOX SUBQ SCH (05:52)
[2019-05-16] MEDS: TYLENOL PO SCH ×2 (05:53→13:08)
[2019-05-16 06:49] LABS: BASO# 0.07 X1000 (0.0-0.2); BASO% 1.2 % (0.0-0.8); EOS# 0.53 X1000 (0.0-0.7); EOS% 9.1 % (0.0-10.0); HEMATOCRIT 29.8 % (37.0-47.0); HEMOGLOBIN 9.1 g/dL (12.0-16.0); LYMPH# 1.47 X1000 (1.2-3.4); LYMPH% 25.3 % (20.5-51.1); MCH 30.4 PG (27-31); MCHC 30.5 g/dL (33-37); MCV 99.7 FL (81-99); MONO# 0.79 X1000 (0.11-0.59); MONO% 13.6 % (1.7-9.3); NEUT# 2.94 X1000 (1.4-6.5); NEUT% 50.8 % (42.2-75.2); PLT 198 X1000 (130-400); RBC 2.99 XMIL (4.2-5.4)
[2019-05-16 07:05] LABS: AGAP 4; BUN 13 mg/dL (8-22); CALCIUM 8.1 mg/dL (8.8-10.2); CHLORIDE 102 mmol/L (98-107); COSMO 271; CREATININE 0.7 mg/dL (0.5-0.9); ESTIMATED GFR > 60; GLUCOSE 86 mg/dL (70-104); POTASSIUM 4.8 mmol/L (3.5-5.1); SODIUM 136 mmol/L (136-145); TCO2 30 mmol/L (25-35)
[2019-05-16] MEDS: THERA M PLUS PO SCH (09:07)
[2019-05-16] MEDS: LEXAPRO PO SCH (09:07)
[2019-05-16] MEDS: BUSPAR PO SCH ×2 (09:07→13:08)
[2019-05-16] MEDS: PERIDEX MT SCH (09:07)
[2019-05-16] MEDS: FERROUS SULFATE PO SCH (09:07)
[2019-05-16 11:33] VITALS: BP 140/51
--- NOTE | 2019-05-16 11:36 | DISCHARGE SUMMARY ---
ADMISSION DATE: 05/13/2019 DISCHARGE DATE: 05/16/2019 DISCHARGE DIAGNOSES: 1. Left hip fracture status post open reduction and internal fixation. 2. Status post mechanical fall resulting into a left hip fracture. 3. History of deep venous thrombosis previously on Xarelto which has been stopped already by her primary care doctor. 4. History of alcohol use and possible abuse. 5. Situational depression due to recent of her . 6. Dementia. 7. Generalized weakness. PROCEDURES PERFORMED: 1. Hip and pelvis x-ray dated 05/12/2019. Impression: Intertrochanteric left hip fracture. 2. Chest x-ray dated 05/12/2019. Impression: Osteoporosis, multiple old vertebral compression fracture, granulomatosis changes, no definite evidence of acute pulmonary disease. Closed reduction and intramedullary nailing of the left intertrochanteric femur fracture due to left intertrochanteric femur fracture dated 05/13/2019. HOSPITAL COURSE: A 78-year-old female with a past medical history of anxiety, depression, insomnia, and possible dementia, alcohol use, possible abuse who presented to the emergency department with a chief complaint of left hip pain. As per the patient, she was working on her bedroom and she lost her balance. She fell backwards and hit her buttocks. After that, she started having left hip pain, but she was able to ambulate. She did not hit her head or neck. She did not lose consciousness. No dizziness. No chest pain. No palpitations. No nausea, no vomiting, no diarrhea, no constipation, no urinary symptoms. No cough. At the emergency department, she was found to have left hip fracture. She was admitted on 05/13/2019. They contacted orthopedic surgery, Dr. Guzman. She was admitted and she was placed NPO for surgery the next day. I had a large conversation with her daughter at the beginning of this hospitalization, which is the power of system software developer. Apparently. She has been drinking every day [place], probably 2 or 3 coffee cups of this drink. She has she has been placed on a banana bag. She did not have any symptoms of withdrawals during this hospitalization. She was admitted to the medical floor. She had the procedure done on 05/13/2019 where a closed reduction and intramedullary nailing of the left intertrochanteric femur fracture was done. The patient has been improving on a daily basis, and we have been working with physical therapy. She has been having some confusion on top of her dementia, but she has been tolerating p.o. She will be discharged today to a rehab center. PHYSICAL EXAMINATION: Vital Signs: Temperature 98.4 degrees, pulse 86, respiratory rate 22, blood pressure 125/49 and oxygen saturation 100% on 2 L of nasal cannula. HEENT: Head normocephalic. No trauma. PERRLA. Neck: Supple. No JVD. No masses. Central trachea. Chest: Clear to auscultation. No wheezing. No rales. Abdomen: Soft, nontender, and nondistended. No hepatosplenomegaly. Extremities: Left lower extremity has a dressing over the left hip wound. No neurovascular issues. Neurological: She is awake. She is oriented to person. She is oriented to place or time. She has dementia. LABORATORY: WBC 5.8, hemoglobin 9.1, hematocrit 29.8, platelets 198,000 sodium 136, potassium 4.8, chloride 102, bicarbonate 30, BUN 13, creatinine 0.7 glucose 86, and calcium 8.1. DISCHARGE MEDICATIONS: 1. Acetaminophen 650 mg p.o. q.6 hours as needed. 2. Buspirone 1 tablet p.o. t.i.d. 3. Docusate 200 mg p.o. at bedtime. 4. Doxepin 10 mg p.o. at bedtime as needed. 5. Citalopram 20 mg p.o. daily. 6. Ferrous sulfate 325 mg p.o. with breakfast. 7. Robaxin 1 tablet p.o. t.i.d. as needed. 8. Thera M Plus 1 tablet p.o. daily. 9. Oxycodone IR 5 mg p.o. q.3 hours as needed for pain. 10. Xarelto 10 mg p.o. daily to complete 35 days. FOLLOW-UP: Orthopedic Surgery, Dr. Parker in 10 to 14 days. TIME SPENT: Time discharging this patient 30 minutes. cc: Pavel Tucker MD
--- NOTE | 2019-05-16 14:18 | ORTHOPAEDICS PROGRESS NOTE ---
DATE: 05/16/2019 SUBJECTIVE: No acute events overnight. The patient is resting comfortably this morning. States pain is well controlled. She ate dinner last night. She is urinating spontaneously. OBJECTIVE: Hematocrit 30.Extremities: Examination of left lower extremity shows incisions to be clean, dry, intact. Thigh and calf were soft and compressible. Motor intact EHL, tibialis anterior, gastrocsoleus complex. Sensation intact to light touch L3-S1. Dorsalis pedis pulse palpable. ASSESSMENT: 78-year-old female status post closed reduction intramedullary nailing, left intertrochanteric femur fracture. Postop day 3. PLAN: 1. Patient to be weightbearing as tolerated left lower extremity. PT to continue to mobilize with assistive device. 2. Lovenox DVT prophylaxis. 3. Ice to the left lower extremity p.r.n. 4. Encourage incentive spirometry and pulmonary toilet. 5. Disposition per primary team. Patient [place] [facility] [place] [facility]. I will see her in clinic in 10 to 14 days for wound check and x-rays.
== END 2019-05-16 15:56 | DRG 481 ==
LOC: ED 21:43 → SUATTDRO 05-13 01:11 → 4N 05-13 01:11
PROVIDERS: ATTEND Internal Medicine

== ENCOUNTER 2019-09-16 19:02 | Inpatient (IN) ==
[2019-09-16] MEDS ORDERED: SOLU-MEDROL IV ONE (19:17)
[2019-09-16] MEDS ORDERED: DUONEB (A & A) INH ONE ×2 (19:17→19:48)
--- NOTE | 2019-09-16 19:30 | Diag Imaging Result Doc PS360 ---
EXAM: CHEST-PORTABLE 09/16/2019 HISTORY: sob TECHNIQUE: AP portable erect at 1926 COMMENT: There are ill-defined opacities in both apices. There is apical pleural thickening and some calcification in the pleura in the left apex. Compared to the previous study of 05/12/2019 the lungs are not as well-expanded and the costophrenic angles are somewhat blunted particularly the left. IMPRESSION: Granulomatous changes. Questionable left pleural effusion. Electronically signed by Isaiah Maddox 09/16/2019 7:28 PM
[2019-09-16 19:44] LABS: BLOOD TYPE ARTERIAL; SAMPLE BLOOD
[2019-09-16] MEDS ORDERED: PULMICORT INH ONE (19:48)
[2019-09-16 19:49] LABS: pH(98.6) 7.35 (7.35-7.45)
[2019-09-16 19:50] LABS: BE 8.8 mmoll (-3.0-3.0); HCO3-(ACT) 31.7 mmoll (20.0-26.0); PO2(98.6) 92 mmHg (60-100); SAO2 98.5 % (95.0-100.0); THB 13.5 g/dL (11.5-17.4)
[2019-09-16 19:51] LABS: ALLEN TEST YES; MODALITY CANNULA; O2(CT) 18.2 mL/dL (15.0-23.0); O2HB 95.3 % (95.0-99.0)
[2019-09-16 19:52] LABS: PCO2(98.6) 67 mmHg (35-45)
[2019-09-16 20:00] LABS: BASO# 0.06 X1000 (0.0-0.2); BASO% 1.2 % (0.0-0.8); EOS# 0.03 X1000 (0.0-0.7); EOS% 0.6 % (0.0-10.0); HEMATOCRIT 44.1 % (37.0-47.0); HEMOGLOBIN 13.3 g/dL (12.0-16.0); LYMPH# 1.44 X1000 (1.2-3.4); LYMPH% 28.8 % (20.5-51.1); MCH 29.4 PG (27-31); MCHC 30.2 g/dL (33-37); MCV 97.6 FL (81-99); MONO# 0.73 X1000 (0.11-0.59); MONO% 14.6 % (1.7-9.3); MPV 10.5 FL (7.4-10.4); NEUT# 2.74 X1000 (1.4-6.5); NEUT% 54.8 % (42.2-75.2); PLT 214 X1000 (130-400); RBC 4.52 XMIL (4.2-5.4); RDW 16.1 % (11.5-14.5)
[2019-09-16 20:10] LABS: INR 1.41; PROTIME 17.5 Seconds (11.0-16.0); PTT 36.6 Seconds (22.3-41.8)
[2019-09-16 20:22] LABS: ALB/GLOB RATIO 1.5; ALBUMIN 3.8 g/dL (3.5-5.0); CREATININE 1.2 mg/dL (0.5-0.9); MAGNESIUM 1.9 mg/dL (1.5-2.7); POTASSIUM 4.3 mmol/L (3.5-5.1); TOTAL BILIRUBIN 0.34 mg/dL (0.20-1.00); TOTAL PROTEIN 6.4 g/dL (6.3-8.3)
--- NOTE | 2019-09-16 20:24 | EKG Report ---
Test Performed on : 09/16/2019 7:40:18 PM Test Reason : short of breath Blood Pressure : / mmHG Vent. Rate : 083 BPM Atrial Rate : 083 BPM P-R Int : 118 ms QRS Dur : 066 ms QT Int : 390 ms P-R-T Axes : 069 067 035 degrees QTc Int : 458 ms Normal sinus rhythm. Normal ECG No previous ECGs available Unconfirmed Result
[2019-09-16] MEDS ORDERED: LASIX IV ONE (21:09)
--- NOTE | 2019-09-16 21:14 | Diag Imaging Result Doc PS360 ---
EXAM: CT ANGIOGRM PULMONARY ARTERIES 09/16/2019 HISTORY: sudden onset short of breath TECHNIQUE: This exam was performed using automated exposure control, adjustment of mA or kV according to patient size, and/or use of iterative reconstruction technique. COMMENT: There are no previous studies available for comparison. 3-D MIPS were performed. There are no filling defects in the pulmonary arteries. There are bilateral pleural effusions. The aorta is not distended and there is no evidence of dissection. There is no evidence of significant adenopathy. There is pleural thickening in both apices with some granulomatous calcifications. There is severe COPD. There is apparent compressive atelectasis in both lower lobes. There has been kyphoplasty at L2 and T12. There is no evidence of acute bony abnormality. IMPRESSION: No evidence of pulmonary emboli. COPD. Bilateral pleural effusions and basilar atelectasis. Electronically signed by Isaiah Maddox 09/16/2019 9:11 PM
--- NOTE | 2019-09-16 21:24 | PROVIDER DOCUMENTATION ---
This chart was entered by Alma Raymundo Scribe, acting as scribe for Dc Ying MD. HPI-General Adult - General Stated Complaint: LOW O2 SAT Time Seen by Provider: 09/16/19 19:05 Source: patient Allergies/Adverse Reactions: Patient Allergies Allergy/AdvReac Type Severity Reaction Status Date / Time No Known Allergies Allergy Verified 02/14/19 17:20 Home Medications: Home Medication List Medication Instructions Recorded Confirmed Last Taken Type Acetaminophen [Tylenol] 650 mg PO Q6H PRN PRN tab 05/16/19 09/16/19 Unknown Rx Buspirone HCl 1 tab PO TID #60 tab 05/16/19 09/16/19 09/16/19 Rx Docusate Sodium [Colace] 200 mg PO QHS cap 05/16/19 09/16/19 09/15/19 Rx Doxepin [Sinequan] 10 mg PO QHS PRN #30 cap 05/16/19 09/16/19 09/15/19 Rx Escitalopram [Lexapro] 20 mg PO DAILY #30 tab 05/16/19 09/16/19 09/16/19 Rx Ferrous Sulfate 325 mg PO WBREAKFAST #60 tab 05/16/19 09/16/19 09/16/19 Rx Multivit,Fe,Ca,FA & Min [Thera M 1 ea PO DAILY tab 05/16/19 09/16/19 09/16/19 Rx Plus] Rivaroxaban [Xarelto] 10 mg PO DAILY #32 tab 05/16/19 09/16/19 09/16/19 Rx Donepezil [Aricept] 1 tab PO QHS 09/16/19 09/16/19 09/15/19 History Ondansetron [Zofran] 1 tab PO Q4-6H PRN PRN 09/16/19 09/16/19 Unknown History Polyethylene Glycol [Polyox 1 dose PO DIRECTED 09/16/19 09/16/19 09/15/19 History [id number]] - History of Present Illness -Gen Adult Nature of Presenting Problems: pt is a 79 yr old female presenting via EMS with low Spo2 sat, pt is resident at assisted living facility, staff noted spo2 sat of 52, EMS reports sat of 59% on room air after removing nail divehi and repositioning monitor, pt denies any shortness of breath, chest pain or calf pain, pt admits hx of anxiety and reports feeling anxious now. pt hx of left hip fx with replacement 05/2019. pt hx of DVT. Location of Pain/Injury: reports: none Pain Radiation: reports: no radiation Quality of Pain: reports: none Onset/Duration: reports: unsure Timing: reports: improving Context/Activities at Onset: reports: rest (sitting in wheelchair/resting at onset) Modifying Factors: improves with: other (oxygen at 4/6l improved sats) Associated Symptoms: reports: anxiety. denies: chest pain, cough, diaphoresis, dizziness, fever/chills, nausea, shortness of breath, vomiting Similar Symptoms Previously?: No Recently seen or treated by another doctor?: No Review of Systems - Adult - REVIEW OF SYSTEMS - ADULT ROS:: limited per condition (hx of dementia) Constitutional: denies: chills, fever Eyes: reports: no symptoms reported Ears, Nose, Mouth & Throat: reports: no symptoms reported Cardiovascular: denies: chest pain, palpitations, syncope Respiratory: denies: cough, dyspnea on exertion, shortness of breath Gastrointestinal: reports: no symptoms reported Genitourinary: reports: no symptoms reported Musculoskeletal: reports: no symptoms reported Integumentary: reports: no symptoms reported Neurological: denies: dizziness/vertigo, syncope Psychiatric: reports: anxiety Endocrine: reports: no symptoms reported Hematologic/Lymphatic: reports: no symptoms reported Allergic/Immunologic: reports: no symptoms reported All Other Systems: Reviewed and Negative Past History - Adult - PAST MEDICAL HISTORY-ADULT Review of Records: reports: Old Records Reviewed, Nursing Assessment Review, Medications Reviewed, Social history reviewed & non-contributory. Major Childhood Illnesses: reports: denies history Cardiovascular: reports: HTN Respiratory: reports: denies history Gastrointestinal: reports: denies history Obstetrical/Gynecological: reports: denies history Genitourinary: reports: denies history Musculoskeletal: reports: denies history Neurological: reports: dementia Psychiatric: reports: denies history Endocrine/Immune: reports: denies history Other Conditions: reports: denies history - PRIOR SURGERIES/PROCEDURES Surgical/Procedure History: reports: reviewed, not pertinent - IMMUNIZATION STATUS Childhood Immunizations: See Nurse Assessment Flu Vaccine: See Nurse Assessment - FAMILY HISTORY Family History: reviewed, not pertinent - SOCIAL HISTORY Smoking: quit greater than 1 year (1974) Living Situation: care facility (assisted living) Physical Exam-General - PHYSICAL EXAM-ADULT Initial Vital Signs Reviewed: Yes - CONSTITUTIONAL General Appearance: appears well, alert, no apparent distress, anxious - EYES Eyes: PERRL/EOMI - HEAD, EARS, NOSE, MOUTH & THROAT HENMT: normocephalic/atraumatic, moist mucous membranes, normal ENT inspection - NECK Neck: non-tender, full range of motion, supple, normal inspection - RESPIRATORY Respiratory: chest non-tender, no pleuratic chest pain, no respiratory distress, no accessory muscle use, wheezing (inspiritory wheezes), increased rate, other (tight breath sounds) - CARDIOVASCULAR Cardiovascular: normal peripheral pulses, no edema, tachycardia, systolic murmur (1/6 systolic murmur at apex) - GASTROINTESTINAL (ABDOMEN) Abdominal Exam: normal bowel sounds, non tender, soft - LYMPHATIC Lymphatic: no adenopathy - MUSCULOSKELETAL Back Exam: normal inspection Extremity: normal range of motion, non-tender, normal inspection - SKIN Integumentary: normal color, normal turgor, warm/dry - NEUROLOGIC Neurologic: grossly normal, no motor/sensory deficits - PSYCHIATRIC Psych/Mental Status: anxious Progress - PLAN OF CARE/RESULTS Result Diagrams: 09/16/19 19:37 09/16/19 19:37 - REASSESSMENT Reassessment #1 Time Reassessed: 19:59 Status: improving (patient on 4L NC (not on O2 at [facility]), ABG appears similar to someone with compensated COPD (though she has no history) with hypoxemia and hypercarbia and mild resp acidosis. Patient is in no distress on supp O2, will give 2 duonebs and 1 budesonide, IV solu-medrol and observe. Will need to r/o PE. Family at bedside agree with current plan and offer no questions.) Reassessment #2 Time Reassessed: 21:21 Status: improving (Given also lasix. Will need cardiac work-up for new onset chf with bilateral pleural effusiins, COPD, resp acidosis) - EKG 1 Time of EKG reading by physician:: 19:50 EKG Read and Signed by:: Dc Ying EKG Interpretation (*Must complete 3 of following elements*): Abnormal (artifact present) Rate: 83 Rhythm: nsr QRS: poor R wave progression Comments: no STEMI - XRAY 1 XRAY Study: Chest Impression: Abnormal ( Signed EXAM: CHEST-PORTABLE 09/16/2019 HISTORY: sob TECHNIQUE: AP portable erect at 1926 COMMENT: There are ill-defined opacities in both apices. There is apical pleural thickening and some calcification in the pleura in the left apex. Compared to the previous study of 05/12/2019 the lungs are not as well-expanded and the costophrenic angles are somewhat blunted particularly the left. IMPRESSION: Granulomatous changes. Questionable left pleural effusion. Electronically signed by Isaiah Maddox 09/16/2019 7:28 PM 09/16/191927 Interpreting Physician: Isaiah Maddox MD Dictated Date/Time: 09/16/191926 cc: Dc Ying MD; Guru vEans MD) Comparison with other Films: changes noted (05/12/19) - CT/MRI 1 CT Study: Angiogram Impression: Abnormal (Signed EXAM: CT ANGIOGRM PULMONARY ARTERIES 09/16/2019 HISTORY: sudden onset short of breath TECHNIQUE: This exam was performed using automated exposure control, adjustment of mA or kV according to patient size, and/or use of iterative reconstruction technique. COMMENT: There are no previous studies available for comparison. 3-D MIPS were performed. There are no filling defects in the pulmonary arteries. There are bilateral pleural effusions. The aorta is not distended and there is no evidence of dissection. There is no evidence of significant adenopathy. There is pleural thickening in both apices with some granulomatous calcifications. There is severe COPD. There is apparent compressive atelectasis in both lower lobes. There has been kyphoplasty at L2 and T12. There is no evidence of acute bony abnormality. IMPRESSION: No evidence of pulmonary emboli. COPD. Bilateral pleural effusions and basilar atelectasis. Electronically signed by Isaiah Maddox 09/16/2019 9:11 PM 09/16/192110 Interpreting Physician: Isaiah Maddox MD Dictated Date/Time: 09/16/192106 cc: Dc Ying MD; Guru Evans MD) Comparison with other Films: no prior study - CONSULTS/PCP/HOSPITALIST Notification #1 *Consult/PCP/Hospitalist*: Okinedo Time Discussed: 21:20 Consult Disposition: Will see in ED, Admit Departure - Departure Date of Disposition Decision: 09/16/19 Time of Disposition Decision: 21:23 DIAGNOSIS: Acute respiratory failure with hypoxia and hypercarbia, New onset of congestive heart failure, COPD with acute exacerbation Disposition: ADMITTED INPATIENT 09 Certified Medical Emergency: Emergent Condition: Fair Referrals and Follow-Ups: Guru Evans MD [Primary Care Provider] - - Critical Care Note This patient required my direct & personal management of CC.: Yes Total Time (mins): 45 Critical Care Statement: This patient required my direct personal management to treat or rule out processes, the absence of which, could potentiallly result in sudden, clinically significant life or limb threatening deterioration. Attestation - Physician/ CRISTO Attestation Patient care was provided by Advanced Practice Provider:: No The physician spent face to face time with patient:: Yes Advanced Practice Provider documentation review:: Supervising physician onsite and consulted in the evaluation and care of this patient. The physician did have a face to face encounter with the patient. This chart was documented by the indicated scribe, (Alma Raymundo Scribe) and accurately reflects the services I performed and decisions made by me, Dc Ying MD, as attested by the provider's signature.
[2019-09-16 21:40] LABS: ALLEN TEST YES; BE 5.9 mmoll (-3.0-3.0); BLOOD TYPE ARTERIAL; HCO3-(ACT) 29.1 mmoll (20.0-26.0); O2(CT) 16.2 mL/dL (15.0-23.0); PO2(98.6) 51 mmHg (60-100); SAMPLE BLOOD; SAO2 86.4 % (95.0-100.0); THB 13.8 g/dL (11.5-17.4)
[2019-09-16 21:42] LABS: MODALITY CANNULA
[2019-09-16 21:43] LABS: O2HB 83.5 % (95.0-99.0); PCO2(98.6) 71 mmHg (35-45)
[2019-09-16] MEDS ORDERED: ATIVAN IV ONE (22:01)
[2019-09-16 22:03] LABS: URINE SOURCE CATH
[2019-09-16 22:13] LABS: BILIRUBIN URINE NEGATIVE (NEGATIVE); BLOOD URINE SMALL (NEGATIVE); COLOR YELLOW; GLUCOSE URINE NEGATIVE (NEGATIVE); KETONE URINE 10 mg/dL (NEGATIVE); LEUKOCYTES URINE NEGATIVE (NEGATIVE); NITRITE URINE NEGATIVE (NEGATIVE); PROTEIN URINE 100 mg/dL (NEGATIVE); SP GRAVITY URINE 1.049; TURBIDITY URINE CLEAR (CLEAR); UR EPITHELIAL CELLS <10 /HPF (<10); URINE BACTERIA NEGATIVE /HPF; URINE RBC <10 /HPF (<10); UROBILINOGEN URINE NORMAL (NORMAL)
[2019-09-17] MEDS: DUONEB (A & A) INH SCH ×3 (05:30→15:59)
[2019-09-17] MEDS ORDERED: TYLENOL PO PRN (05:45)
[2019-09-17] MEDS ORDERED: ZOFRAN IV PRN (05:45)
[2019-09-17 05:55] LABS: ALLEN TEST YES; BE 12.3 mmoll (-3.0-3.0); BLOOD TYPE ARTERIAL; HCO3-(ACT) 34.5 mmoll (20.0-26.0); METHB 0.8 % (0.0-1.5); O2(CT) 17.4 mL/dL (15.0-23.0); PO2(98.6) 135 mmHg (60-100); SAMPLE BLOOD; SAO2 99.5 % (95.0-100.0); SRATE 4 BPM; THB 12.6 g/dL (11.5-17.4); pH(98.6) 7.39 (7.35-7.45)
[2019-09-17 05:56] LABS: MODALITY BI PAP
[2019-09-17 05:57] LABS: PCO2(98.6) 66 mmHg (35-45)
--- NOTE | 2019-09-17 06:53 | EKG Report ---
Test Performed on : 09/17/2019 06:35:20 AM Test Reason : Dyspnea,Poss. CHF Blood Pressure : / mmHG Vent. Rate : 091 BPM Atrial Rate : 091 BPM P-R Int : 122 ms QRS Dur : 072 ms QT Int : 376 ms P-R-T Axes : 079 094 039 degrees QTc Int : 462 ms Normal sinus rhythm. with sinus arrhythmia. Rightward axis Borderline ECG When compared with ECG of 16-SEP-2019 19:40, (Unconfirmed) No significant change was found Confirmed by Gianluca LEMON, Wilner Melton ([id number]) on 09/18/2019 12:22:39 PM
--- NOTE | 2019-09-17 08:22 | Diag Imaging Result Doc PS360 ---
CT HEAD W/O CONTRAST - 09/17/2019 INDICATION: AMS COMPARISON: None FINDINGS: There is mild to moderate white matter hypodensity compatible with chronic microvascular ischemia. This affects the periventricular white matter of the cerebral hemispheres as well as the dani. No intracranial mass or hemorrhage. No skull fracture. There has been surgical widening of the left external auditory canal. There is also opacification of the mastoids on the right side. IMPRESSION: No evidence of acute intracranial abnormality. This exam was performed using automated exposure control, adjustment of mA or kV according to patient size, and/or use of iterative reconstruction technique Electronically signed by Morgan Jackson 09/17/2019 8:20 AM
[2019-09-17] MEDS: SOLU-MEDROL IV SCH (08:55)
[2019-09-17] MEDS ORDERED: SOLU-MEDROL IV SCH (10:00)
[2019-09-17 10:20] LABS: BASO# 0.02 X1000 (0.0-0.2); BASO% 0.5 % (0.0-0.8); HEMATOCRIT 40.9 % (37.0-47.0); LYMPH# 0.81 X1000 (1.2-3.4); MCH 28.7 PG (27-31); MCHC 29.3 g/dL (33-37); MCV 97.8 FL (81-99); MONO# 0.78 X1000 (0.11-0.59); MONO% 19.3 % (1.7-9.3); MPV 10.1 FL (7.4-10.4); NEUT# 2.43 X1000 (1.4-6.5); NEUT% 60.2 % (42.2-75.2); PLT 194 X1000 (130-400); RBC 4.18 XMIL (4.2-5.4); RDW 16.1 % (11.5-14.5); WBC 4.04 X1000 (4.8-10.8)
[2019-09-17 10:27] LABS: INR 1.23; PROTIME 15.7 Seconds (11.0-16.0)
[2019-09-17] MEDS: LASIX IV SCH (10:55)
[2019-09-17 15:35] LABS: ALB/GLOB RATIO 1.6; ALBUMIN 3.5 g/dL (3.5-5.0); CALCIUM 8.3 mg/dL (8.8-10.2); CREATININE 1.1 mg/dL (0.5-0.9); MAGNESIUM 1.6 mg/dL (1.5-2.7); POTASSIUM 4.1 mmol/L (3.5-5.1); TOTAL BILIRUBIN 0.31 mg/dL (0.20-1.00); TOTAL PROTEIN 5.7 g/dL (6.3-8.3)
--- NOTE | 2019-09-17 15:44 | ECHO REPORT ---
ORDER DATE: 09/17/2019 INTERPRETING PHYSICIAN: Keny Guardado MD STUDY: Limited 2D echocardiogram. ECHOCARDIOGRAPHIC MEASUREMENTS: 1. Interventricular septum 0.9. 2. Left ventricular posterior wall 0.9. 3. Diastolic diameter 3.5. 4. Aorta 2.6 cm. SUMMARY OF 2-DIMENSIONAL IMAGIN. Normal left ventricular cavity size. Estimated ejection fraction of 65%. 2. Aortic valve leaflets are trileaflet. There is biatrial enlargement. 3. Mitral valve was normal. 4. Tricuspid valve was normal. 5. There is no pericardial effusion or obvious intracardiac mass or thrombus seen. cc: Keny Guardado MD
--- NOTE | 2019-09-17 20:49 | PROGRESS NOTE ---
DATE: 09/17/2019 INTERVAL HISTORY: Patient admitted with acute on likely chronic hypoxic, hypercapnic respiratory failure with COPD exacerbation. The patient's latest ABG is with significantly improved pH. The patient clinically looks much better, awake and talking to me, although she remains somewhat confused. Blood pressure dropped briefly this afternoon but has come up spontaneously since then. No other acute events. No new complaints. REVIEW OF SYSTEMS: Twelve-point review of systems negative except as per interval history. LABS: WBCs 4.0, hemoglobin 12.0, hematocrit 40.9, platelets 194. ABG with pH of 7.39, pCO2 of 66, pO2 of 135 on BiPAP at that time. Sodium 143, potassium 4.0, BUN 27, creatinine 1.1, glucose 134. IMAGING: Echocardiogram with normal EF. No major valvular pathology. Head CT unremarkable. CTA with no evidence of pulmonary emboli. Chronic COPD changes noted. Small bilateral effusions and atelectasis at the bases. VITALS: T-max 99.1, pulse 95, respirations 14, blood pressure 115/53, O2 saturation 99% on 2 L by nasal cannula. PHYSICAL EXAMINATION: General: No acute distress. Vitals: As above. HEENT: Normocephalic, atraumatic. On nasal oxygen via nasal cannula. Cardiovascular: Regular rate and rhythm. No murmurs noted. Pulmonary: Mildly decreased air entry throughout. Faint end-expiratory wheeze. Further decreased at the bases, otherwise fairly clear. Abdomen: Soft, nontender, nondistended. Bowel sounds positive. Extremities: Peripheral pulses intact. No clubbing or cyanosis. Neurologic: Cranial nerves grossly intact. No focal deficits identified. Psychiatric: Awake and alert. Speech is a little rapid and tangential, but answers questions largely appropriately. Oriented to person and time but not place. ASSESSMENT AND PLAN: 1. Acute on likely chronic hypoxic and hypercapnic respiratory failure, chronic obstructive pulmonary disease exacerbation, and pulmonary hypertension. The patient is markedly improved. Was admitted with O2 saturation of 86% on 2 L, and at that time had to be placed on BiPAP overnight, but now on nasal cannula and doing quite well. Waking up better. Still somewhat confused. Imaging of the chest showed chronic obstructive pulmonary disease but no evidence of pulmonary embolism or pneumonia. Continues steroids and DuoNeb treatments. Brain natriuretic peptide mildly elevated. Does have some effusions on imaging. Decreased air entry at the bases on exam, so may have an aspect of fluid overload related to her pulmonary hypertension, so will also continue some Lasix and monitor closely. 2. Dementia, likely contributing to her current encephalopathy. Continue monitoring, reorient as possible. 3. Likely acute kidney injury. The patient appears to have a baseline creatinine of approximately 0.7 to 0.9. Mildly increased to 1.2 on admission, coming down slightly with treatment of her underlying comorbidities. Continue monitoring. We will see if it continues to improve. 4. History of deep venous thrombosis. No pulmonary embolism noted on assessment this hospitalization. On Xarelto at home, which we will restart.
[2019-09-17] MEDS: HALDOL IM PRN (20:58)
[2019-09-18] MEDS: SOLU-MEDROL IV SCH ×3 (03:52→21:04)
[2019-09-18] MEDS: DUONEB (A & A) INH SCH ×4 (05:36→23:53)
--- NOTE | 2019-09-18 09:17 | HISTORY AND PHYSICAL ---
PRIMARY CARE PROVIDER: Dr. Evans. DATE AND TIME: 09/17/2019 at 0130. CHIEF COMPLAINT: Hypoxia. HISTORY OF PRESENT ILLNESS: Ms. Moore is an 79-year-old female who is a resident at [facility], and has been living here in [place]. She reportedly this evening prior to arrival, the [facility] staff did perform vital signs, and noted that her pulse oximetry level was low reportedly in the 50s. They did call an ambulance to have her brought to the ER for further evaluation. With placement of nasal cannula at 6 L, we were able to get her oxygen saturations up to 100%. The patient had really no complaints except for she was anxious. Her daughter who lives in [place] who is her power of continuous miner operator helper does help to take care of her. States she does visit her fairly often. She does have a history of dementia, which they have noticed that her symptoms have been slightly worsening recently. Normally, she states the patient is alert and oriented to person, place, and time. She reports that the patient does have a history of anxiety, depression, insomnia, dementia, and does have a history of DVT. She is currently taking Xarelto. Her daughter reports that she did have a venous Doppler performed of one of her lower extremities just a day or so ago, and they are awaiting those results at this time. She reports that the patient is recently , and has had some worsening depression related to this. She reports that previously the patient did have some occasional wine use, though the patient's daughter denies this being any regular daily alcohol use. The patient is a former smoker, she denies her having any known respiratory problems or diagnoses. The daughter does report at this time the patient's current mentation is not at her baseline, that she is more confused. Though upon speaking with the patient, the patient pretty much denies any symptoms except for feeling anxious. She denies any headache, dizziness, chest pain, shortness of breath, or cough. She denies any abdominal pain, nausea, vomiting, or diarrhea. She denies any dysuria. She denies any pain, numbness, tingling or swelling in extremities. Upon EMS arrival at her [facility], even after removal of nail malay from her nail, they did note an oxygen saturation of 59%. She denied any fever, body aches, or chills as well. They did place her on nasal cannula at 6 L, and her oxygen saturation improved to 100%. Chest x-ray showed old granulomatous changes and a questionable left pleural effusion. Though given her history of DVT, they did perform a CT angiogram of pulmonary arteries which showed no evidence of pulmonary emboli, though it did note that she did have severe COPD, bilateral pleural effusions, and basilar atelectasis. She has not been febrile with no leukocytosis noted. Creatinine was elevated at 1.2. Previously in May of 2019, this was 0.7. ProBNP was 16,198. Initial troponin T high sensitivity was slightly elevated at 27 though, the next repeat was within normal limits. Initial arterial blood gases did show hypercapnia with a CO2 of 67. They did adjust the patient's oxygen and repeat these though she did have worsening ABGs with a pH of 7.3, pCO2 of 71, PO2 of 51, and O2 saturation of 86.4%. They did place her on BiPAP at this time. The patient is resting comfortably in the bed. She has a few white blood cells noted in her urine though the patient is asymptomatic. She denies any urinary symptoms. Though, she will be placed for evaluation of acute hypoxic and hypercapnic respiratory failure. REVIEW OF SYSTEMS: A 14 point review of systems was conducted with the patient. All were negative except for pertinent positives mentioned above in HPI. PAST MEDICAL HISTORY: 1. Anxiety. 2. Depression. 3. Insomnia. 4. Dementia. 5. History of DVT, currently on Xarelto. 6. The patient's daughter denies her having any known respiratory problems. Looking back at the patient's chart, I did note where Dr. Evans had ordered some outpatient studies for pulmonary function test which had noted some severe obstruction without improvement following bronchodilator, component of restriction with reduction in the total lung capacity, and severe reduction in diffusing capacity. This was the impression from a pulmonary function test in February of 2019. PAST SURGICAL HISTORY: 1. Kyphoplasty in March of 2019. 2. Left hip fracture surgical repair in May of 2019. SOCIAL HISTORY: The patient currently is a resident at [facility]. She has been living there since her . Her daughter reports that since that time she has had worsening problems with depression and anxiety as well as some worsening dementia symptoms. There was some mention of some previous alcohol use, but the daughter states that patient does not drink any alcohol like this at this time. Though she is a former smoker, according to history, she did smoke 1 pack per day for 40 years though stopped smoking 15 years ago. There is no history of illicit drug use. ALLERGIES: Patient has no known allergies. HOME MEDICATIONS: 1. Buspirone HCl 10 mg p.o. t.i.d. 2. Colace 200 mg p.o. at bedtime. 3. Colace 10 mg p.o. at bedtime. 4. Aricept 10 mg p.o. at bedtime. This was just recently increased by her physician Dr. Evans. 5. Doxepin 10 mg p.o. at bedtime p.r.n. 6. Lexapro 20 mg p.o. daily. 7. Ferrous Sulfate 320 mg p.o. with breakfast. 8. Multivitamin 1 p.o. daily. 9. Zofran 1 tablet p.o. q.4-6 hours p.r.n. 10. polyethylene glycol 1 dose as directed p.o. daily. 11. Xarelto 10 mg p.o. daily. 12. Methocarbamol 500 mg p.o. take 2 tablets by mouth 3 times a day. DIAGNOSTIC DATA/LABORATORY RESULTS: White blood cell count is 5000, hemoglobin 13.3, hematocrit 44.1, and platelet count is 214,000. PT 17.5, INR 1.41, PTT 36.6. Sodium 144, potassium 4.3, chloride 99, serum bicarb 35, BUN 31, and creatinine 1.2 with a GFR of 43, glucose 92, calcium 9, and magnesium 1.9. Liver function tests: Total bilirubin 0.34, AST 52, ALT 61, and alkaline phosphatase is 84. CK 51, troponin T high sensitivity is 27. ProBNP is 16,198. Plasma lactate 1.2. Serum alcohol level was zero. Urinalysis obtained via catheter, and was positive for protein, ketones, small amount of blood, and a few white blood cells. It was negative for glucose, blood, nitrites, bilirubin, leukocytes, or bacteria. Arterial blood gases on nasal cannula at 2 L were 7.3, pCO2 71, PO2 51, HC03 is 29.1 with base excess of 5.9, oxyhemoglobin 83.5, and O2 saturation 86.4. Since these were obtained, the patient has been placed on BiPAP. EKG showed normal sinus rhythm at a rate of 83 with a QTc of 458. Chest x-ray showed some granulomatous changes, and a questionable left pleural effusion. CT angiogram of pulmonary arteries showed no evidence of pulmonary emboli, but did show severe COPD, bilateral pleural effusions and basilar atelectasis. PHYSICAL EXAMINATION: VITAL SIGNS: Temperature 98.7 degrees, heart rate 86, respirations 18, blood pressure 139/71, and oxygen saturation is 99% on BiPAP. GENERAL: Ms. Moore is an 79-year-old female. She was resting in the ER stretcher. She was on BiPAP mask at this time so speaking with her was difficult. Though I was able to obtain her pertinent information needed. She is alert and oriented to person at this time. She knew she was in a facility, but did not know what type. She could not tell us what month it was, though she was able to answer some simple questions and follow commands. She was able to identify her daughter at bedside and did know her middle name. HEENT: Head is atraumatic, normocephalic. Pupils are equal, round, and reactive to light, were 3 mm bilaterally and brisk. Oral mucosa was slightly dry, though she has had BiPAP mask in place. NECK: Supple. Trachea midline. The patient did have some JVD noted upon examination. CARDIOVASCULAR: Patient has S1-S2 present. No murmurs, gallops, or rubs appreciated with a regular rate and rhythm. PULMONARY: Patient has symmetrical chest expansion bilaterally. Upper lung rider were clear to auscultation though in bilateral bases she did have crackles noted. ABDOMEN: Soft, nontender, and nondistended. Bowel sounds are present in all 4 quadrants, and were normoactive. EXTREMITIES: No cyanosis or edema noted. Pulse, motor, and sensory were intact in all extremities. Radial and pedal pulses are 2+ bilaterally. INTEGUMENTARY: Skin is pink, warm, and dry. NEUROLOGICAL: Patient is alert and oriented to person only at this time. She is able to answer simple questions and follow commands. She is moving all extremities. Muscle strength and hand grasps were equal bilaterally. She denies any numbness or tingling. There are no focal neurological deficits noted. ASSESSMENT AND PLAN: 1. Acute hypoxic and hypercapnic respiratory failure. The patient's daughter had no previous knowledge of her having COPD, though she is a former smoker. This was noted on her CTA. She does have pulmonary function tests that were performed outpatient ordered by Dr. Evans that suggests this as well. Oxygen saturation has improved with placement of supplemental oxygen, though she is still hypercapnic. She has been placed on BiPAP at this time. We will repeat her arterial blood gases in the morning. We will continue to monitor her respiratory status closely. 2. COPD. The patient's CTA did note severe COPD disease. She has been placed on supplemental oxygen with BiPAP and her respiratory status as well as her oxygen saturations have been improving. We will go ahead and place her with some IV Solu-Medrol 20 mg IV q.12 hours and DuoNeb treatments. We will continue to monitor this closely. 3. Possible new onset congestive heart failure exacerbation. The patient has no previous history of having CHF. Though she is not reporting any shortness of breath upon examination, she was hypoxic initially, and did have JVD noted. She has crackles noted in bilateral bases. We will order echocardiogram for further evaluation, repeat her cardiac enzymes. Her proBNP was elevated at 16,198. Also, she did receive 40 mg of Lasix in the ER. She has had a positive response to this with documented 600 mL of urine output though the patient's nurse did note that due to a Vergara complication, the patient's Vergara catheter had leaked so that the entire bed was heavily saturated with urine so I do believe the patient's urine output has been much more than what was able to be documented. We will continue to follow this closely. We have placed a consult with Cardiology. We will await their evaluation and further recommendations for management. 4. Encephalopathy. This could be multifactorial. The patient does take several medications that could be contributing to this as well, though she was hypercapnic and hypoxic. This likely did further worsen this. She does have a history of underlying dementia, for which her daughter states recently has been worsening. We will perform frequent vital signs and neurological checks. She will be on continuous cardiac telemetry. We will hold likely some of her medicines at this time so that we can rule out possible involvement there. The only medication that her daughter states that recently had been changed to increase was her Aricept has been increased from 5 mg to 10 mg. We will continue to monitor this closely. 5. Acute kidney injury. The patient's creatinine at this time though is not highly elevated it is 1.2, though previously in May of 2017, it was 0.7. We will avoid nephrotoxic medications, and we will wean those medications with renal dose medications. We will continue to follow this closely with strict intake and output. 6. History of DVT. The patient currently does take Xarelto. Her daughter states that she did receive a venous Doppler of one of her lower extremities 2 days ago, and they have not received the official results of this yet. At this time, I have held her Xarelto until we can receive repeat morning laboratory studies. She does have an acute kidney injury at this time, and her INR was elevated at 1.4. We will repeat this morning as well as her renal function. This will need to be followed up on. If these studies have improved, her Xarelto can likely be continued. We will not place any SCD's at this time given that she does have a history of DVT in the lower extremity. She did recently have a venous Doppler performed, which we do not have the results for at this time. The patient will be placed on the medical floor of telemetry. She will have vital signs q.4 hours. We will do strict intake and output, incentive spirometry. She will be on a heart healthy diet. We will repeat a CBC, PT/INR, arterial blood gases, CMP with magnesium and cardiac enzymes. She also does have some white blood cells in her urine. The patient is not reporting any urinary symptoms. Urine culture has been placed at this time. Further orders and recommendations pending hospital course, diagnostic studies, and physician evaluation. Dictated by BRUNO Shipman for Viraj White MD cc: Viraj White MD [facility]
[2019-09-18] MEDS: LASIX IV SCH ×3 (10:35→21:04)
[2019-09-18 11:00] LABS: BASO# 0.07 X1000 (0.0-0.2); BASO% 1.1 % (0.0-0.8); EOS# 0.07 X1000 (0.0-0.7); EOS% 1.1 % (0.0-10.0); HEMATOCRIT 43.2 % (37.0-47.0); HEMOGLOBIN 12.7 g/dL (12.0-16.0); LYMPH# 1.29 X1000 (1.2-3.4); LYMPH% 19.9 % (20.5-51.1); MCH 28.9 PG (27-31); MCHC 29.4 g/dL (33-37); MCV 98.4 FL (81-99); MONO# 0.98 X1000 (0.11-0.59); MONO% 15.1 % (1.7-9.3); NEUT# 4.08 X1000 (1.4-6.5); NEUT% 62.8 % (42.2-75.2); PLT 209 X1000 (130-400); RBC 4.39 XMIL (4.2-5.4); RDW 16.3 % (11.5-14.5); WBC 6.49 X1000 (4.8-10.8)
[2019-09-18] MEDS ORDERED: SINEQUAN PO PRN (11:18)
[2019-09-18 11:40] LABS: AGAP 10; BUN 25 mg/dL (8-22); CALCIUM 8.8 mg/dL (8.8-10.2); CHLORIDE 97 mmol/L (98-107); COSMO 289; CREATININE 0.8 mg/dL (0.5-0.9); ESTIMATED GFR > 60; GLUCOSE 87 mg/dL (70-104); POTASSIUM 3.2 mmol/L (3.5-5.1); SODIUM 143 mmol/L (136-145); TCO2 36 mmol/L (25-35)
[2019-09-18] MEDS: BUSPAR PO SCH ×3 (13:44→21:03)
[2019-09-18] MEDS ORDERED: KLOR-CON PO ONE (15:01)
--- NOTE | 2019-09-18 15:24 | CARDIOLOGY CONSULTATION ---
DATE: 09/18/2019 HISTORY OF PRESENT ILLNESS: Ms. Moore is an 79-year-old, lady who temporally was a resident at [facility]. Has been living here in [place]. Prior to her arrival, she was noted to have oxygen saturation in the 50s and with placement of oxygen, saturations went up to 100%. She was brought to the emergency room, was admitted, and had to be placed on BiPAP. She had a chest x- ray which revealed old granulomatous changes and noticed left effusion. Patient's daughter states that her mother had been a chronic smoker. Has seen her family physician, Dr. Guru Evans, and had pulmonary function tests done which revealed severe obstructive pulmonary disease. However, the patient does not say that she has been diagnosed to have COPD. Her daughter states that she had not been gone to the [facility] on a regular basis. Her recently as well. The troponin was within normal limits. ProBNP was elevated at 16,198. The patient had an echocardiogram done which revealed preserved left ventricular systolic function. She has been on Lasix. When she came in, she had worsening of her ABGs, pH 7.3, pCO2 of 71, PO2 of 51, oxygen saturation 86% at that time. She denies any chest pain. There are no palpitations. REVIEW OF SYSTEMS: A 14-point review of system was done. Central Nervous System: The patient's daughter noticed that she was confused initially but her mentation has significantly improved. However, no focal weakness to suggest a CVA or TIA. System: There is no dysuria or hematuria. Respiratory System: As above. Cardiovascular System: Denies any chest pain. PAST MEDICAL HISTORY: Anxiety, depression, insomnia, history of DVT and was on Lasix, recent lung function test noted severe obstruction without improvement with bronchodilators. PAST SURGICAL HISTORY: Kyphoplasty 2019, left hip fracture surgical repair 2019. HOME MEDICATIONS AND CURRENT MEDICATIONS: Include: 1. DuoNeb inhalers. 2. BuSpar. 3. Aricept. 4. Doxepin. 5. Lexapro. 6. Lasix 20 mg IV b.i.d. 7. Haloperidol was given as needed. 8. Solu-Medrol. ALLERGIES: She is not known to be allergic to any medications. SOCIAL HISTORY: She lost her recently. Has been a smoker, quit smoking 15 years back. PHYSICAL EXAMINATION: Blood pressure was 117/51. Jugular venous pressure was normal. First and second heart sounds were heard. Respiratory System: Examination revealed distant breath sounds. Otherwise, no obvious wheezing noted. Abdomen: Soft, nontender. There was no guarding or rigidity. Bowel sounds were heard. Central Nervous System: Alert, oriented, was moving all 4 extremities. Examination of extremities revealed no pedal edema. HEENT: Atraumatic, normocephalic. Pupils were equal and reacting to light. Detailed central nervous system examination not performed. LABORATORY DATA: Sodium 143, potassium 3.2, BUN 25, creatinine 0.8. Troponins negative. Hematology: Hemoglobin 12.7, hematocrit 43, platelet count of 209,000, WBCs 6.49. ASSESSMENT AND PLAN: 1. Ms. Moore is an 79-year-old, lady who has severe obstructive lung disease. Was noted to have low oxygen saturation and disorientation. Was admitted to the hospital. She has abnormal ABGs suggestive of respiratory failure. We will consult Dr. Lombardo in the morning. 2. From a cardiac standpoint, she has had elevated proBNP. Has normal left ventricular systolic function. Was started on Lasix. Symptomatically, she has improved. We will continue with the Lasix at the current dosage. Blood pressures are normal. We will check another proBNP to assess improvement. 3. As far as her other cardiac status is concerned, she has not had any chest pain. No previous cardiac history. 4. Her potassium was low. We will replace potassium as well. Thank you for the consult. cc: Keny Guardado MD
--- NOTE | 2019-09-18 18:39 | PROGRESS NOTE ---
DATE: 09/18/2019 INTERVAL HISTORY: The patient is still requiring some oxygen but improving. Mental status also improving slowly although speech remains a little slightly pressured. The patient appears much less confused, and more cooperative. No new complaints. No acute events overnight. REVIEW OF SYSTEMS: Twelve point review of systems negative except as per interval history. LABORATORY: WBC 6.4, hemoglobin 12.7, hematocrit 43.2, and platelets 209,000. Sodium 143, potassium 3.2, bicarb 36, BUN 25, and creatinine 0.8. IMAGING: Echocardiogram with preserved ejection fraction. No significant valvular pathology. VITALS: T-max 99.1 degrees, pulse 83, respirations 18, blood pressure 117/51, and O2 saturation 93 on 3 L by nasal cannula. PHYSICAL EXAMINATION: General: No acute distress. Vitals: As above. HEENT: Normocephalic, atraumatic. Remains on oxygen via nasal cannula. Cardiovascular: Regular rate and rhythm. No murmurs noted. Pulmonary: Still with mildly decreased air entry throughout. Still a little bit of an expiratory wheeze but improving from previous. A little decreased at both bases. Abdomen: Soft, nontender, and nondistended. Bowel sounds positive. Extremities: Peripheral pulses intact. No clubbing or cyanosis. Neurologic: Cranial nerves grossly intact. Mild global weakness, but no focal deficits. Psychiatric: Awake and alert. Speech is still a little rapid, but less tangential and answers more appropriate. Oriented x3 today. ASSESSMENT AND PLAN: 1. Acute on likely chronic hypoxic hypercapnic respiratory failure, chronic obstructive pulmonary disease exacerbation, and pulmonary hypertension. The patient is still requiring some oxygen, but overall much improved. Her mental status is much better. She is pretty appropriate this morning at the time of my exam. Still on 3 to 4 L of oxygen, but much improved from admission. Imaging without any evidence of PE or pneumonia. Continue steroids and nebulizers. Repeat echocardiogram without any evidence of decreased EF, but does have known pulmonary hypertension and likely diastolic congestive heart failure, which may be contributing so we will continue with some low-dose Lasix. 2. Likely acute kidney injury. Creatinine mildly elevated at 1.2 on admission has improved to 0.8 with treatment of her underlying issues. 3. Dementia, relatively mild at baseline, likely contributing to her encephalopathy which appears to be resolving. 4. Anxiety. We have both patient and her family endorse some history of fairly significant anxiety doing okay currently. We will consider low-dose Ativan if it becomes necessary. Continue her home BuSpar [place].
[2019-09-18] MEDS: HALDOL IM PRN (19:52)
[2019-09-18] MEDS: ARICEPT PO SCH (21:03)
--- NOTE | 2019-09-19 01:12 | CONSULTATION ---
DATE OF CONSULTATION: 09/18/2019 REASON FOR CONSULTATION: COPD and shortness of breath. CLINICAL HISTORY: Ms Mcdonnell is an 79-year-old white female with a 40 pack-year history for tobacco (nonsmoker x15 years) who was brought to the emergency room with confusion and hypoxemia. The patient's oxygen saturation was in the 50s, per EMS report. The patient was initiated on oxygen at 6 L and weaned to 4 L while in the emergency room. The patient was in the hospital in May following a hip fracture. She required oxygen throughout that entire hospital stay. She underwent a CT scan of the thorax with pulmonary angiography which revealed severe emphysema, small bilateral effusions with minimal basilar atelectasis or infiltrates. She has improved with oxygen and low-dose Lasix. PAST MEDICAL HISTORY: 1. Severe COPD. Pulmonary function studies 02/12/2019 revealed an FEV1 of 0.59 L or 31% of predicted. DLCO was severely reduced at 34% of predicted. 2. Pulmonary hypertension with a PA systolic pressure measured at 60 mmHg on echocardiogram 02/27/2019. 3. Anxiety disorder. 4. Dementia. 5. History of depression. 6. History of deep vein thrombosis. 7. Status post kyphoplasty. 8. Status post intramedullary nailing of left intertrochanteric femur fracture. SOCIAL HISTORY: The patient currently lives in [facility]. She is ambulatory. She has a [id number] history for tobacco but has not smoked for 15 years. REVIEW OF SYSTEMS: The patient reports occasional anxiety. She has some difficulty with short- term memory. FAMILY HISTORY: Noncontributory to current presentation. PHYSICAL EXAMINATION: General: Reveals a thin, chronically ill-appearing white female resting comfortably on nasal cannula. Vital Signs: BP 145/62, heart rate 100, respiratory rate 19, oxygen saturation 94% on 4 L per nasal cannula. HEENT: Pupils are equal and reactive. Oropharynx is clear. Neck: Supple. Chest: Reveals minimal crackles in the bases with prolonged expiratory phase. Cardiac: S1-S2, distant heart sounds. Abdomen: Soft. Extremities: Without edema. LABORATORIES: Arterial blood gas on presentation in the emergency room on supplemental oxygen, pH 7.35, pCO2 of 67, PO2 of 92. IMPRESSION: An 79-year-old with: 1. Severe chronic obstructive pulmonary disease. 2. Acute on chronic hypoxemic respiratory failure. 3. Chronic hypercapnic respiratory failure. 4. Pulmonary hypertension with an episode of acute cor pulmonale likely due to hypoxemia. 5. Component of dementia with exacerbation due to hypoxemia. RECOMMENDATIONS: 1. Continue oxygen therapy. Anticipate the need for oxygen at the time of discharge. 2. Continue current nebulizer regimen. Would consider using her nebulizer 3 times a day when discharged back to the [facility]. 3. Agree with low-dose Lasix. 4. Would recommend discontinuing steroids. 5. End of life discussions were held with the patient while the family was at the bedside. She does not want aggressive life support or resuscitation, but she will clarify this with 1 daughter, which was not at the bedside. I would like to thank you for this consult. If any questions, please call me. cc: Calvin Lombardo MD
[2019-09-19] MEDS: DUONEB (A & A) INH SCH ×3 (03:39→15:25)
[2019-09-19 07:33] LABS: AGAP 9; BUN 24 mg/dL (8-22); CALCIUM 8.8 mg/dL (8.8-10.2); CHLORIDE 96 mmol/L (98-107); COSMO 291; CREATININE 0.8 mg/dL (0.5-0.9); ESTIMATED GFR > 60; GLUCOSE 105 mg/dL (70-104); MAGNESIUM 1.6 mg/dL (1.5-2.7); POTASSIUM 4.1 mmol/L (3.5-5.1); SODIUM 144 mmol/L (136-145); TCO2 39 mmol/L (25-35)
[2019-09-19] MEDS: BUSPAR PO SCH ×3 (09:33→22:13)
[2019-09-19] MEDS: LASIX IV SCH ×2 (09:33→22:13)
[2019-09-19] MEDS: KLOR-CON PO SCH (09:34)
[2019-09-19] MEDS: LEXAPRO PO SCH (09:34)
--- NOTE | 2019-09-19 18:46 | PROGRESS NOTE ---
DATE: 09/19/2019 INTERVAL HISTORY: The patient's previously noted encephalopathy/confusion has pretty much entirely resolved. The patient is awake, alert, appropriate. Struggled slightly with date questions, but eventually answered all orientation questions appropriately. Breathing approaching baseline but still requiring a fair amount of oxygen. No new complaints. No acute events. REVIEW OF SYSTEMS: Twelve-point review of systems negative except as per interval history. LABORATORY DATA: Sodium 144, potassium 4.1, BUN 24, creatinine 0.8, glucose 105. BNP 1217, down from 16,000 on admission. OBJECTIVE: Vital signs: T-max 98.7 degrees, pulse 68, respirations 20, blood pressure 133/53, O2 saturation 95% on 2 L.General: No acute distress. HEENT: Normocephalic, atraumatic. On O2 via nasal cannula. Cardiovascular: Regular rate and rhythm. No murmurs noted. Pulmonary: Mildly decreased air entry throughout remains, but wheezing essentially resolved at this point, better air entry at the bases as well. Abdomen soft, nontender, nondistended. Bowel sounds positive. Extremities: Peripheral pulses intact. No clubbing or cyanosis. Neurologic: Cranial nerves grossly intact. Mild global weakness but no focal deficits. Psychiatric: Normal mood and affect. Hesitated slightly with orientation questions, but did eventually answer them all appropriately. All other responses seem appropriate. Cooperative. ASSESSMENT AND PLAN: 1. Acute on likely chronic hypoxic hypercapnic respiratory failure, chronic obstructive pulmonary disease exacerbation, pulmonary hypertension, [id number] diastolic heart failure. The patient is still requiring some oxygen but markedly improved overall. Her mental status has cleared entirely. Still has some decreased air entry but no further wheezing. Off steroids as per recommendations from Pulmonology. Echocardiogram without any evidence of decreased ejection fraction, but does have significant pulmonary hypertension and likely diastolic congestive heart failure, which has responded well to low-dose Lasix which we will continue. If she continues to do well, then hopefully discharge back to assisted living tomorrow. We will evaluate her for need for home oxygen. 2. Likely acute kidney injury. Creatinine mildly elevated to 1.2 on admission. With treatment of her underlying conditions, this has come down to 0.8 despite diuresis. Monitor. 3. Hypokalemia, improved with repletion. Monitor. 4. Dementia, pretty mild. No further confusion. 5. Encephalopathy, likely related to mild underlying dementia and acute illness, but now resolved. 6. Anxiety. The patient reports a long history of anxiety, but appears to be well controlled currently. Continue her home medications.
--- NOTE | 2019-09-19 21:42 | PULMONOLOGY PROGRESS NOTE ---
DATE: 09/19/2019 SUBJECTIVE: Ms. Moore has no complaints today. She is talking with visitors. OBJECTIVE: Vital signs: Blood pressure is 156/60 with a heart rate of 65, respirations are 18, temperature is 98.1 degrees oral, with O2 saturations 94 to 96 percent on 3 L nasal cannula. Cardiovascular: Regular rate and rhythm. S1, S2 appreciated. No murmur. Pulmonary: Decreased air entry throughout. Chest rises and falls symmetrically with respiration. Gastrointestinal: Abdomen is soft, nontender, and nondistended with bowel sounds in all 4 quadrants. Neurologic: She is awake and alert. Skin: Warm and dry. LABS: Sodium is 144, potassium 4.1, BUN 24, creatinine 0.8, with a glucose of 105. ASSESSMENT: 1. Severe chronic obstructive pulmonary disease. 2. Acute on chronic hypoxemic respiratory failure. 3. Chronic hypercapnic respiratory failure. 4. Pulmonary hypertension, with an episode of cor pulmonale, likely due to hypoxemia. 5. Component of dementia with exacerbation due to hypoxemia. PLAN: 1. continue oxygen therapy. 2. Home O2 evaluation, . Anticipate the need of oxygen at the time of discharge. 3. Continue current nebulizer regimen. Recommend nebulizer 3 times a day when discharged back to the [facility]. 4. Continue low dose Lasix. 5. Steroids have been discontinued. Plan was discussed with Dr. Lombardo. Dictated by BRUNO Moreno for Calvin Lombardo MD cc: BRUNO Moreno MD [facility]
[2019-09-19] MEDS: ARICEPT PO SCH (22:13)
[2019-09-20] MEDS: DUONEB (A & A) INH SCH ×5 (00:08→22:26)
[2019-09-20 07:03] LABS: BASO# 0.04 X1000 (0.0-0.2); BASO% 0.8 % (0.0-0.8); EOS# 0.12 X1000 (0.0-0.7); EOS% 2.5 % (0.0-10.0); HEMATOCRIT 41.9 % (37.0-47.0); HEMOGLOBIN 12.3 g/dL (12.0-16.0); LYMPH# 1.26 X1000 (1.2-3.4); LYMPH% 26.4 % (20.5-51.1); MCH 28.6 PG (27-31); MCHC 29.4 g/dL (33-37); MCV 97.4 FL (81-99); MONO# 0.79 X1000 (0.11-0.59); MONO% 16.5 % (1.7-9.3); MPV 10.1 FL (7.4-10.4); NEUT# 2.57 X1000 (1.4-6.5); NEUT% 53.8 % (42.2-75.2); PLT 218 X1000 (130-400); WBC 4.78 X1000 (4.8-10.8)
[2019-09-20 07:44] LABS: CALCIUM 8.8 mg/dL (8.8-10.2); POTASSIUM 4.2 mmol/L (3.5-5.1)
[2019-09-20] MEDS: LASIX IV SCH (10:56)
[2019-09-20] MEDS: KLOR-CON PO SCH (10:56)
[2019-09-20] MEDS: LEXAPRO PO SCH (10:56)
[2019-09-20] MEDS: BUSPAR PO SCH ×3 (10:56→22:40)
[2019-09-20] MEDS ORDERED: TYLENOL PO PRN (16:28)
--- NOTE | 2019-09-20 17:45 | PROGRESS NOTE ---
DATE: 09/20/2019 INTERVAL HISTORY: Ms. Moore qualified for home oxygen as her oxygen saturation dropped to 70s on room air at the time of respiratory team's evaluation. SUBJECTIVE: Ms. Moore is feeling fine. She denies any chest pain or shortness of breath at rest. Her daughter and granddaughter are at bedside. I reviewed findings of COPD, CAT scan imaging, pulmonary hypertension with them and answered all of their questions. Currently vital signs temperature 98.8 degrees, pulse 86, respiratory 20, blood pressure 118/51, she is saturating 88 to 94 percent on 2 L nasal cannula. PHYSICAL EXAMINATION: Oral cavity is moist. Not in acute distress. Air entry bilateral equal. No wheeze or rhonchi. She has inspiratory crackles in bilateral infrascapular region. S1, S2 normal. No murmur, rub, or gallop. Abdomen is soft, nontender. No hepatojugular reflex. No lower extremity edema. She is alert. She does have some memory impairment but otherwise she appears oriented to time and situation. LABS: Suggestive of normal blood count. She does have normal kidney function with mild elevation of BUN and creatinine. Her proBNP decreased from 16,000 to 1200. Microbiology no positive data. No new imaging. ASSESSMENT AND PLAN: 1. Acute on chronic hypoxic hypercapnic respiratory failure due to mild chronic obstructive pulmonary disease exacerbation, pulmonary hypertension, acute cor pulmonale. Patient qualified for home oxygen. She would need oxygen at the time of discharge of about 2 to 3 L continuously. She has been off steroids. Continue inhaled bronchodilator. 2. Acute kidney injury likely due to acute hypoxic respiratory failure, acute encephalopathy due to acute hypoxic respiratory failure now improved. She appears to be at baseline. 3. Others. Continue home donepezil for dementia, buspirone, escitalopram and doxepin which are her home medications for anxiety, haloperidol as needed for agitation, rivaroxaban for prior history of DVT 4. Disposition. The patient has been on intravenous Lasix and my plan is to change it to oral Lasix starting tomorrow. I will follow up with electrolytes tomorrow. I also discussed with the charge nurse about setting up home oxygen. If her electrolytes are okay and her shortness of breath does not get worse, if her oxygen levels are more than 88% on about 2 to 3 L of nasal cannula oxygen and her home oxygen is set up my plan will be to discharge her in next 24 hours. Plan of care discussed with the patient and her family at bedside, their questions have been satisfactorily answered. cc: Jake Barber MD
--- NOTE | 2019-09-20 20:45 | PULMONOLOGY PROGRESS NOTE ---
DATE: 09/20/2019 SUBJECTIVE: Ms. Moore has no complaints today. She is sitting and talking to family members. OBJECTIVE: vital signs: Blood pressure is 147/61 with a heart rate of 85, respirations 20, temperature is 98.4 degrees oral with O2 saturations that are ranging from 90 to 96 percent on 2 L nasal cannula. Cardiovascular: Regular rate and rhythm. S1 and S2 appreciated. No murmur. Pulmonary: Breath sounds are clear. Chest rises and falls symmetric with respiration. Chest wall is nontender to palpation. Gastrointestinal: Abdomen is soft, nontender, nondistended. Bowel sounds in all 4 quadrants. Neurologic: Awake and alert. Skin: Warm and dry. LABORATORY DATA: WBC is 4.7 with hemoglobin 12.3, hematocrit 41.9, and platelets 218,000. Sodium 143, potassium 4.2, BUN 21, creatinine 1 with a glucose of 86. ASSESSMENT: 1. Severe chronic obstructive pulmonary disease. 2. Acute on chronic hypoxemic respiratory failure. 3. Chronic hypercapnic respiratory failure. 4. Pulmonary hypertension with an episode of cor pulmonale, likely due to hypoxemia. 5. Component of dementia with exacerbation due to hypoxemia. The patient is at her baseline at this time. 6. Anxiety. PLAN: 1. continue oxygen therapy. 2. Continue current nebulizer regimen with plans to use nebulizer 3 times a day when discharged back to the group home. 3. Continue low-dose Lasix. Plan was discussed with Dr. Lombardo. Dictated by BRUNO Moreno for Calvin Lombardo MD cc: BRUNO Moreno MD [facility]
[2019-09-20] MEDS ORDERED: COLACE PO SCH (21:00)
[2019-09-20] MEDS: ARICEPT PO SCH (22:40)
[2019-09-21] MEDS: DUONEB (A & A) INH SCH (04:04)
[2019-09-21 08:19] LABS: CALCIUM 9.1 mg/dL (8.8-10.2); POTASSIUM 4.5 mmol/L (3.5-5.1)
[2019-09-21] MEDS ORDERED: XARELTO PO SCH (09:00)
[2019-09-21] MEDS ORDERED: LASIX PO SCH (09:00)
[2019-09-21] MEDS ORDERED: THERA M PLUS PO SCH (09:00)
[2019-09-21 09:18] VITALS: BP 139/59
[2019-09-21] MEDS: LEXAPRO PO SCH (10:17)
[2019-09-21] MEDS: BUSPAR PO SCH (10:18)
--- NOTE | 2019-09-21 15:32 | DISCHARGE SUMMARY ---
ADMISSION DATE: 09/17/2019 DISCHARGE DATE: 09/21/2019 DISCHARGE DISPOSITION: Back to assisted living facility on oxygen as well as nebulizer. DISCHARGE DIAGNOSES: 1. Acute on chronic hypoxic hypercapnic respiratory failure. 2. Mild acute chronic obstructive pulmonary disease exacerbation. 3. Acute cor pulmonale. 4. Pulmonary hypertension. 5. Acute kidney injury due to acute hypoxic respiratory failure. 6. Acute encephalopathy due to acute hypoxic respiratory failure. OTHER DIAGNOSES: 1. History of severe COPD with FEV1 of close to 30% of predicted. 2. Chronic hypercapnic respiratory failure. 3. History of anxiety. 4. History of dementia. 5. History of deep venous thrombosis on home Xarelto. 6. History of hip fracture surgical repair in May 2019. DISCHARGE MEDICATIONS: 1. Donepezil 5 mg at nighttime. 2. MiraLAX 1 dose 3 times a week on Sunday, Sunday, Sunday. 3. Zofran 4 mg every 6 hours as needed for nausea and vomiting. 4. Colace 200 mg at nighttime. 5. Doxepin 10 mg at nighttime as needed. 6. Buspirone 10 mg t.i.d. 7. DuoNeb 3 mL inhaled every 6 hours. 8. Ferrous sulfate 325 mg with breakfast. 9. Lasix 20 mg daily. 10. Lexapro 20 mg daily. 11. Multivitamin 1 tablet daily. 12. Acetaminophen 650 mg every 6 hours as needed. 13. Xarelto 10 mg daily. VITALS: At the time of discharge, temperature 97.6 degrees, pulse 73, respiratory 16, blood pressure 139/59, saturating 93% on room air and 97% on 2 to 3 L nasal cannula. PHYSICAL EXAMINATION: Ms. Moore does not appear in any acute distress. She does have protein energy malnutrition. Lungs: Air entry bilaterally equal. No wheeze or rhonchi. Mild crackles, inspiratory bilateral infrascapular region. Cardiovascular: S1, S2 normal. No murmur or gallop. Abdomen: Scaphoid, soft, nontender. No hepatojugular reflex. No lower extremity edema. She was alert. She was oriented to place, person, and was able to answer questions adequately. She did have a documented bowel movement. LABS: At the time of discharge WBC 4.7, hemoglobin 12.3, platelet 218, BUN 20, creatinine 1, sodium 142, potassium 4.5. She does have carbon dioxide of 40. Her proBNP improved from 16,000 on presentation to 1200 at the time of discharge. Microbiology blood culture, urine culture, and influenza screen were negative. SIGNIFICANT IMAGING: During this hospital admission, pulmonary arteriogram performed on September 16 did not have any evidence of pulmonary emboli. She had COPD, bilateral pleural effusions, and basilar atelectasis. Head CT on September 17 did not have any evidence of acute intracranial pathology. Electrocardiogram on September 16 had normal sinus rhythm. Echocardiogram had suggested ejection fraction of 65%. Normal left ventricular cavity size without any pericardial effusion. HOSPITAL COURSE SUMMARY: Ms. Moore is an 79-year-old lady who presented on 09/17/2018 with chief complaints of hypoxia. Apparently, she lives in assisted living facility and routine vital signs were being performed on her at that time. She was noticed to have oxygen saturation in her 50s. The patient was also complaining of weakness. She was started on oxygen through nasal cannula and brought into the emergency room. The patient was a former smoker, though had quit smoking several years ago. When the EMS arrived, her oxygen saturation was 60%. She did not have any subjective cough. She was only feeling short of breath mildly. She was started on 6 L and was transferred to Emergency Medical room. In the ER, considering her profound hypoxia, she was found to have a pulse of 94, oxygen saturation of 65% on room air, which improved to 97% on BiPAP, and later she was transitioned to nasal cannula. CT scan had severe COPD and bilateral pleural effusion. She was started on nebulized bronchodilators, steroids for acute chronic obstructive pulmonary disease exacerbation as well as Lasix considering she had pleural effusion. It was thought that her hypoxic hypercapnic respiratory failure was acute on chronic when it was related to her severe COPD, which improved after bronchodilators as well as oxygenation. It was also felt that she had acute cor pulmonale because of hypoxia. She previously had a pulmonary artery systolic pressure of 60 mmHg and with intravenous Lasix her condition improved and she was transitioned to oral Lasix. At the time of discharge, she is tolerating 2 to 3 L of nasal cannula oxygen and maintaining saturation adequately and she has been transitioned to oral Lasix. She was advised to have follow up with pulmonology as well as Cardiology. TIME SPENT: More than 30 minutes of time was spent discharging this patient. Plan of care was discussed with the patient. All of her questions were answered. Paperwork for assisted living facility was filled out. cc: Jake Barber MD [facility]
== END 2019-09-21 10:57 | disposition home health service (06) | DRG 190 ==
LOC: SUPCPDRO → ED 19:02 → EDIPHOLD 09-17 04:39 → SUATTDRO 09-17 04:39 → 4N 09-17 15:46
PROVIDERS: ATTEND Internal Medicine